=== PATIENT | female | born 1955 | race Caucasian/White ===

== ENCOUNTER 2018-03-20 08:30 | Outpatient (RCR) | payer OTHER, SELFPAY ==
--- NOTE | 2018-02-01 13:16 | HP.PTEVAL_ITS ---
Patient's Visit Information ANGELINA MANCERA is a 62 year old F referred to Physical Therapy by Rica Gee MD with a diagnosis of CERVICALGIA. Date of Evaluation: 02/01/18 Physical Therapist: Abbey Obregon - Visit Plan Frequency: 2x /Week Duration: 4-6 Weeks Plan: POSTURE CORRECTION/STRENGTHENING, INSTRUCTION IN APPROPRIATE BODY MECHANICS AND ACTIVITY MODIFICATIONS. IVAN UE ROM, STRETCHING AND STRENGTHENING. HEP INSTRUCTION. - Subjective Subjective: Diagnosis: CERVICALGIA. 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 45 MIN TRAVEL 5 DAYS A WEEK. ABOUT 50% SITTING AND 50% STANDING. Disability: NO. Present symptoms: IVAN NECK PAIN RIGHT > LEFT. Present since: ABOUT 5 MONTHS. SX'S WORSENED DECEMBER 23 AFTER A 2.5 HOUR FLIGHT. Pain Scale: WORST 6/10, LEAST 0/10. Currently: 4/10. Commenced as a result of: FROM A LOT OF STRESS AND LOOKING DOWN. Symptoms at onset: LEFT NECK > RIGHT. Worse: SLEEPING, TURNING HEAD RIGHT OR LEFT DRIVING, WEIGHT LIFTING/SHOULDER WORK. Better: HEAT PACK. Disturbed sleep: YES. Previous history/Previous treatment: UNREMARKABLE. Dizziness: NO. Tinnitis: NO. Nausea: NO. Difficulty Swollowing: NO. Gait: NORMAL. Accidents: NO. Unexplained weight loss: NO. Imaging: NECK X-RAY ABOUT 3 YEARS AGO - NORMAL. TAKEN DUE TO DIZZINESS AND NAUSEA. PMH: UNREMARKABLE. Recent major surgery: UNREMARKABLE - Objective Sitting Posture: POOR. FORWARD HEAD AND ROUNDED SHOULDERS. NO TORTICOLLIS. Active Correction of posture: BETTER. Other Observations: INDEP GAIT AND TRANSFERS. Motor deficit: IVAN UE STRENGTH 5/5 WITH MMT. Sensory deficit: NO. ROM deficit: IVAN UE ROM WFL. Dural Signs: NEGATIVE IVAN UE'S. Cervical Mvmt Loss: Flex: NIL. Pro: NIL. Ext: MIN. Ret: MOD. RSB: MOD. LSB: MOD. R Rot : MOD. L Rot: MOD. Postural strength: FAIR. Palpation: NO ACUTE SPINE OR CERVICAL MUSCULATURE TENDERNESS. A FEW UPPER TRAP PALPABLE TRIGGER POINTS. - Goals Goal 1:: DECREASE C/O NECK PAIN Goal Time Frame: 4-6 Weeks Goal 2:: IMPROVE PERSONAL CARE, LIFTING, READING, SLEEP, WORK, DRIVING AND RECREATIONAL FUNCTION Goal Time Frame: 4-6 Weeks Goal 3:: INSTRUCT IN PROPHYLAXIS Goal Time Frame: 4-6 Weeks - Rehabilitation Potential Rehabilitation Potential: Good - Anticipated Interventions Thank you for the opportunity to evaluate your patient. For Medicare and Medicare HMO plans, please review the plan of care and approve it. It will need to be FAXED BACK to us at [phone] for Medicare purposes. Please let me know if there are questions or concerns regarding this plan of care. Physician Signature: Date:
--- NOTE | 2018-03-12 12:31 | HP.PTREVAL_ITS ---
Rica Gee MD, It has been my pleasure to treat ANGELINA MANCERA over the last 6 visits for CERVICALGIA. Please see the progress note below for an update on the physical therapy plan of care! Subjective: PATIENT REPORTS SHE TRIES TO DO HER EX'S EVERYDAY AND SHE HAS GOT TO THE POINT THAT SHE CAN GO ABOUT HER NORMAL DAILY ACTIVITIES WITH OCCASSIONAL MILD PAIN. IT IS STILL THERE THOUGH AND SHE WANTS A CURE. I AM IMPATIENT . THE NECK EX'S HELP HER WORK THE STIFFNESS OUT. WHEN SHE TURNS HER HEAD SHE GETS PAIN IN HER NECK ON THE SAME SIDE SHE IS TURNING TO. PATIENT REPORTS SHE FEELS CONFIDENT IN HOW TO DO HER HEP. PATIENT REPORTS SHE PURCHASED A TENS DEVICE AND IT IS HELPING. PATIENT REPORTS SHE WOULD LIKE TO CONTINUE PT FOR AT LEAST A FEW MORE VISITS TO SEE IF MORE US WILL HELP AND SEE IF SHE CAN ADD TO HER HEP. SHE WOULD ALSO LIKE FURTHER INSTRUCTION IN APPROPRIATE INDEP EX RESUMPTION. Objective/Function: IMPROVING. GOOD PROGRESS TOWARD SET PT GOALS. UPON EXAM, PATIENT HAS FULL IVAN UE ROM AND STRENGTH WFL AND TESTING DOES NOT PROVOKE PAIN. CERVICAL MVMT LOSS: R SB - MIN. L SB - MOD. IVAN ROT - MOD. EXT - NIL. RET - MIN TO MOD. FLEX/PRO - NIL. IVAN ROTATION TESTING PROVOKES PAIN AT THE END OF THE AVAILABLE RANGE LEFT GREATER THAN RIGHT. NECK OSWESTRY HAS IMPROVED FROM 19 TO 10. Plan Plan: CONT US AND THERE EX INDICATED PER ORIG POC. PATIENT IS AGREEABLE. Goals Goal 1:: DECREASE C/O NECK PAIN Goal Time Frame: 4-6 Weeks Goal Progress: Progressing Goal 2:: IMPROVE PERSONAL CARE, LIFTING, READING, SLEEP, WORK, DRIVING AND RECREATIONAL FUNCTION Goal Time Frame: 4-6 Weeks Goal Progress: Progressing Goal 3:: INSTRUCT IN PROPHYLAXIS Goal Time Frame: 4-6 Weeks Goal Progress: Progressing Anticipated Interventions Please do not hesitate to contact me at [phone] by phone or Fax: if you have questions or concerns regarding this new plan of care! Sincerely, Abbey Obregon
--- NOTE | 2018-03-20 11:41 | HP.PTDCSUM_ITS ---
HP - PT D/C Summary It has been my pleasure to treat ANGELINA MANCERA under orders from Rica Gee MD , for the diagnosis of CERVICALGIA for a total of 8 visit(s). Discharge Date: Please see the following information for a summary of their discharge status. - Subjective Subjective: PATIENT REPORTS SHE HAD PAIN THIS WEEKEND. WEEDING FOR ABOUT AN HOUR. I ALWAYS FEEL BETTER AFTER WORK OUTS. USUALLY DO NOT EX ON THE WEEKENDS. PATIENT REPORTS SHE FELT GREAT AFTER LAST PT SESSION. - Pain NECK Pain Intensity (Out of 10): 3 - Overall Improvement % Improvement: 80 - Objective Objective/Function: ALL GOALS MET. PATIENT HAS RESPONDED VERY WELL TO PT AND MIGHT BENEFIT FROM A FEW MORE SESSIONS HOWEVER SHE IS GOING OUT OF TOWN FOR ABOUT 3 WEEKS. SHE DEMONSTRATES AND COMMUNICATES A GOOD UNDERSTANDING OF ALL INSTRUCTIONS GIVEN TO THIS POINT. UPON EXAM, SHE STILL HAS CERVICAL MVMT LOSS SIMILAR TO INITIAL EVAL BUT SHE IS REPORTING LESS PAIN AND HEADACHES. NO UE SX' S. CERVICAL OSWESTRY HAS IMPROVED FROM 10 to 5 - Goals Goal 1:: DECREASE C/O NECK PAIN Goal Progress: Goal Met Goal 2:: IMPROVE PERSONAL CARE, LIFTING, READING, SLEEP, WORK, DRIVING AND RECREATIONAL FUNCTION Goal Progress: Goal Met Goal 3:: INSTRUCT IN PROPHYLAXIS Goal Progress: Goal Met - Plan Plan: D/C DUE TO PATIENT LEAVING TOWN. RECOMMENDED FOLLOW UP WITH PCP AFTER TRIP NEEDED. PATIENT AGREEABLE. - D/C Information If there are questions or concerns regarding this patient's physical therapy, please feel free to call me at [phone]. Thank you for the referral of this patient. Sincerely, Abbey Obregon
== END 2018-03-20 19:00 | disposition home or self-care (01) ==
LOC: PT 08:30
PROVIDERS: Family Provider Family Medicine; PCP Family Medicine; Visit Provider Family Medicine
DX: M54.2 Cervicalgia (principal)
CPT/HCPCS: 97014; 97035; 97110; 97140; 97161; 97530; G0283

== ENCOUNTER 2018-07-09 08:30 | Outpatient (RCR) | payer OTHER, SELFPAY ==
--- NOTE | 2018-05-23 10:14 | HP.PTEVAL_ITS ---
Patient's Visit Information ANGELINA MANCERA is a 62 year old F referred to Physical Therapy by Rickey Munson with a diagnosis of CERVICAL DDD C56. Date of Evaluation: 05/23/18 Physical Therapist: Abbey Obregon - Visit Plan Frequency: 2-3x /Week Duration: 4-6 Weeks Plan: CERVICAL US, DRY NEEDLING, MOBILIZATION AND TRACTION. FUTHER POSTURE CORRECTION/STRENGTHENING, INSTRUCTION IN APPROPRIATE BODY MECHANICS AND ACTIVITY MODIFICATIONS. IVAN UE ROM, STRETCHING AND STRENGTHENING. HEP INSTRUCTION. 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 Present symptoms: IVAN NECK PAIN. Present since: DECEMBER 2017. Pain Scale: Worst - 3/ 10 Least - 0/10. Currently: 2. Commenced as a result of: BAD POSTURE FROM DRIVING FROM 45 MIN COMMUTE AND SLEEPING IN AN AWKWARD POSITION ON STOMACH TWISTED. BUSY END OF SCHOOL YEAR. Symptoms at onset: SAME. Worse: BACK TO WORK, STRESS, COMMUTE 45 MIN TO WORK, BAD SLEEPING POSTIONS. Better: PROPER POSTURE, RETRACTION EX'S. Disturbed sleep: YES. Previous history/Previous treatment: PT HERE AT [facility]. Dizziness: NO. Tinnitis: NO. Nausea: NO. Difficulty Swollowing: NO. Gait: NORMAL. Accidents: NO. Unexplained weight loss: NO. Imaging: X-RAY AT [facility] OF NECK - ARTHRITIS AT C56. PMH/Recent major surgery: UNREMARKABLE. - Objective Sitting Posture/Standing Posture: FAIR. MILD FORWARD HEAD. NO TORTICOLLIS. Active Correction of posture: BETTER. Other Observations: INDEP GAIT AND TRANSFERS. Motor deficit: IVAN UE STRENGTH 5/5. Sensory deficit: IVAN UE LIGHT TOUCH SENSATION IS INTACT AND SYMMETRICAL. ROM deficit: IVAN UE ROM WFL. Reflexes: 2/3 IVAN UE'S. Dural Signs: NEGATIVE IVAN UE'S. Cervical Mvmt Loss : Flex: NIL. Pro: NIL. Ext: MIN. Ret: MOD. RSB: MOD. LSB: MOD. R Rot: MOD. L Rot: MOD. Postural strength: FAIR. Palpation: INCREASED MUSCLE TONE THROUGHOUT IVAN CERVICAL REGION. - Goals Goal 1:: DECREASE C/O NECK PAIN Goal Time Frame: 4-6 Weeks Goal 2:: INCREASE PAINFREE CERVICAL ROM TO IMPROVE READING, SLEEP, WORK, DRIVING AND RECREATIONAL FUNCTION Goal Time Frame: 4-6 Weeks Goal 3:: INSTRUCT IN PROPHYLAXIS - Rehabilitation Potential Rehabilitation Potential: Fair - Anticipated Interventions Patient/Client Instruction: Educate patient on: Condition, Plan of Care, Risk Factors, Benefits of Fitness Program For the Purpose of:: To improve self management Therapeutic Exercise to Include: Strength training, Body mechanics, Postural training, Flexibilty training, Passive ROM, Active ROM, Avis Exercises, Scapular Strength/Stabilization For the Purpose of:: To decrease pain, To increase ROM, To improve muscle performance and motor function, To increase tolerance to activity/condition/ position, To improve ability of physical actions for home/community/work/leisure Manual Therapy Techniques to Include: Mobilization, Functional dry needling, Soft tissue mobilization For the Purpose of:: To decrease pain, To increase ROM, To improve nutrient delivery to tissue Cryotherapy (ice pack, ice massage): Yes Thermo therapy (hot pack): Yes Ultrasound (thermal/non thermal): Yes Intermittent cervical traction: Yes For the Purpose of:: To decrease pain, To increase ROM, To improve nutrient delivery to tissue Thank you for the opportunity to evaluate your patient. For Medicare and Medicare HMO plans, please review the plan of care and approve it. It will need to be FAXED BACK to us at [phone] for Medicare purposes. Please let me know if there are questions or concerns regarding this plan of care. Physician Signature: Date:
--- NOTE | 2018-07-02 10:29 | HP.PTREVAL ---
Rickey Munson, It has been my pleasure to treat ANGELINA MANCERA over the last 10 visits for CERVICAL DDD C56. Please see the progress note below for an update on the physical therapy plan of care! Subjective: PATIENT REPORTS HER HEADACHE WAS GONE AFTER TRACTION LAST VISIT. SHE STATES SHE TOLERATED THE DRY NEEDLING WELL TOO. SHE REPORTS SHE HAS ORDERED A HOME TRACTION DEVICE WITH THE HELP OF MAMTA COFFEY DPMarjorie. SHE STATES SHE IS CONTINUING TO IMPROVE WITH TRACTION AND DRY NEEDLING AND SHE PLANS TO FINISH HER SCHEDULED PT X 2 MORE VISITS THEN TRY TO MANAGE ON HER OWN. Objective/Function: PATIENT IS MAKING PROGRESS TOWARD ALL PT GOALS AND IS A GOOD CANDIDATE TO CONTINUE X 2 MORE VISITS WITH D/C ANTICIPATED AFTER THAT. HER NECK ROM IS IMPROVING. Cervical Mvmt Loss: Flex: NIL. Pro: NIL. Ext: MIN. Ret: MOD. RSB: MIN. LSB: MIN. R Rot: MIN. L Rot: MIN. TOLERATED TX WELL TODAY. SESSION FOR DRY NEEDLING TO FOLLOW. Plan Plan: CERVICAL US, DRY NEEDLING, MOBILIZATION AND TRACTION. FUTHER POSTURE CORRECTION/STRENGTHENING, INSTRUCTION IN APPROPRIATE BODY MECHANICS AND ACTIVITY MODIFICATIONS. IVAN UE ROM, STRETCHING AND STRENGTHENING. HEP INSTRUCTION. Goals Goal 1:: DECREASE C/O NECK PAIN Goal Time Frame: 4-6 Weeks Goal Progress: Progressing Goal 2:: INCREASE PAINFREE CERVICAL ROM TO IMPROVE READING, SLEEP, WORK, DRIVING AND RECREATIONAL FUNCTION Goal Time Frame: 4-6 Weeks Goal Progress: Progressing Goal 3:: INSTRUCT IN PROPHYLAXIS Goal Progress: Progressing Anticipated Interventions Patient/Client Instruction: Educate patient on: Condition, Plan of Care, Risk Factors, Benefits of Fitness Program For the Purpose of:: To improve self management Therapeutic Exercise to Include: Strength training, Body mechanics, Postural training, Flexibilty training, Passive ROM, Active ROM, Avis Exercises, Scapular Strength/Stabilization For the Purpose of:: To decrease pain, To increase ROM, To improve muscle performance and motor function, To increase tolerance to activity/condition/position, To improve ability of physical actions for home/community/work/leisure Manual Therapy Techniques to Include: Mobilization, Functional dry needling, Soft tissue mobilization For the Purpose of:: To decrease pain, To increase ROM, To improve nutrient delivery to tissue Cryotherapy (ice pack, ice massage): Yes Thermo therapy (hot pack): Yes Ultrasound (thermal/non thermal): Yes Intermittent cervical traction: Yes For the Purpose of:: To decrease pain, To increase ROM, To improve nutrient delivery to tissue Please do not hesitate to contact me at [phone] by phone or if you have questions or concerns regarding this new plan of care! Sincerely, Abbey Obregon
--- NOTE | 2018-07-09 12:24 | HP.PTDCSUM ---
HP - PT D/C Summary It has been my pleasure to treat ANGELINA MANCERA under orders from Rickey Munson, for the diagnosis of CERVICAL DDD C56 for a total of 12 visit(s). Discharge Date: 07/09/18 Please see the following information for a summary of their discharge status. - Subjective Subjective: Pt. reports being significantly better than whe she started PT. Pt. reports no pain currently. This PT seeing patient for second half of PT session. - Pain BEHIND LEFT EAR Pain Intensity (Out of 10): 0 HEADACHE Pain Intensity (Out of 10): 0 IVAN UPPER TRAPS Pain Intensity (Out of 10): 0 NECK Pain Intensity (Out of 10): 0 - Overall Improvement % Improvement: 98 - Objective Objective/Function: Pt. tolerated all PT without adverse reaction. Pt. has mutliple LTR on L UT and L levator scapulea. Pt. had min/nil loss with cervical rotation to L side, but no pain. Rest of motion was full. Pt. pleased with PT. - Goals Goal 1:: DECREASE C/O NECK PAIN Goal Progress: Progressing Goal 2:: INCREASE PAINFREE CERVICAL ROM TO IMPROVE READING, SLEEP, WORK, DRIVING AND RECREATIONAL FUNCTION Goal Progress: Progressing Goal 3:: INSTRUCT IN PROPHYLAXIS Goal Progress: Progressing - Plan Plan: D/C. PATIENT AGREEABLE - D/C Information If there are questions or concerns regarding this patient's physical therapy, please feel free to call me at [phone]. Thank you for the referral of this patient. Sincerely, Abbey Obregon
== END 2018-07-09 15:14 | disposition home or self-care (01) ==
LOC: PT 08:30
PROVIDERS: Family Provider Family Medicine; PCP Family Medicine; Visit Provider Orthopaedic Surgery
DX: M50.322 Other cervical disc degeneration at C5-C6 level (principal)
CPT/HCPCS: 97012; 97035; 97140; 97161; 97164; 97530

== ENCOUNTER → 2018-07-30 11:31 | Outpatient (CLI) | payer OTHER, SELFPAY | PROVIDERS: Family Provider Family Medicine; PCP Family Medicine; Visit Provider Family Medicine | DX: R19.7 Diarrhea, unspecified (principal) | CPT/HCPCS: 87177; 87209; 87493; 87506 ==

== ENCOUNTER → 2018-08-22 07:17 | Outpatient (CLI) | payer OTHER, SELFPAY ==
--- NOTE | 2018-08-22 07:23 | CT_ITS ---
STUDY: CT ABDOMEN AND PELVIS WITH CONTRAST REASON FOR EXAM: Female, 63 years old. Lower pelvic pain x1 month. RADIATION DOSAGE (If Supplied By Facility): CTDIvol = ( 10.91 ) mGy, DLP = ( 619.06 ) mGycm TECHNIQUE: Transaxial 3.75 mm enhanced and 7 minute delayed liver images were obtained from the dome of the diaphragm to the symphysis pubis with oral contrast. 100 ml of Isovue 300 contrast was administered. Sagittal and coronal images were reconstructed. Individualized dose optimization techniques were used for this CT. COMPARISON: None. FINDINGS: The visualized lung bases are unremarkable. The visualized portions of the heart are within normal limits. Right hepatic lobe contains a lobular low-attenuation mass with nodular peripheral irregular enhancement on arterial phase, measuring approximately 4.1 x 3.4 x 3.7 cm ( AP x width x height ). There is near complete filling on delayed imaging and slight hyperattenuation in comparison to the remainder of the liver parenchyma. This is a characteristic for hemangioma, a benign entity.Normal gallbladder and extrahepatic biliary system. Normal spleen. Normal pancreas. Normal bilateral adrenal glands. Normal right kidney. Normal left kidney. The left ovarian vein is incompetent with left pelvic varices with minimal cross filling. The left common iliac vein is dilated compared to the right side. Normal visualized stomach. Normal small intestine. There are sigmoid colonic diverticula consistent with diverticulosis. The appendix is visualized and appears normal. Image [id number] series 2. Normal abdominal aorta. Normal inferior vena cava. Normal retroperitoneum. Decompressed urinary bladder. The uterus is age appropriate. Small low-attenuation left pelvis 1.9 x 1.3 x 1.2 cm and right pelvis 0.9 x 1.4 x 1.5 cm likely involuted ovaries. Normal abdominal wall. Normal osseous structures. CT/Abdomen/Pelvis WITH Contrast IMPRESSION: Sigmoid diverticulosis. 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 Right liver hemangioma, a stable benign finding, no follow-up required. There is no appendicitis, diverticulitis, ascites, abscess, collection, perforation or obstruction. Electronically Signed: Yaima Fitzpatrick MD at 5:35 EST , Service support ,
[2018-08-22 07:36] LABS: CREATININE FINGERSTICK 0.8 mg/dL (0.55-1.02); EGFR FINGERSTICK > 60.0000 mL/min (>60)
--- OUTSIDE RECORDS SUMMARY | 2018-10-17 11:48 | XMS RPT_ITS ---
:1955 Author Organization OHIP Care Team Providers Name Role Phone Rica Gee Attending Unavailable Rica Gee Referring Unavailable Rica Gee Primary Care Unavailable Twan Waters Attending Unavailable Twan Waters Referring Unavailable Rica Gee Primary Care Unavailable DOCTOR, OUT OF TOWN Attending Unavailable Rica Gee Primary Care Unavailable Jolliff, Rica Attending Unavailable Jolliff, Rica Referring Unavailable Jolliff, Rica Primary Care Unavailable Rickey Munson Attending Unavailable Jolliff, Rica Primary Care Unavailable Jolliff, Rica Attending Unavailable Jolliff, Rica Primary Care Unavailable Jolliff, Rica Attending Unavailable Jolliff, Rica Referring Unavailable Jolliff, Rica Primary Care Unavailable PROBLEMS PROBLEMS DATE TYPE CONDITION / CODE ATTENDING STATUS SOURCE 09/05/2018 Unknown Z12.4 - Encounter Rica Gee [facility] for [facility] malignant neoplasm [facility] of cervix / Repository Z12.4(ICD-10) 07/09/2018 Unknown M50.322 - Other Rickey Munson Active [facility] 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 For the evaluation of Relative Risk for Cardiovascular Disease, a High Sensitivity CRP (HSCRP) should be ordered. Performed By: #### L501.6710 #### [facility] [place], [address] PAP I-G W/RFX HRHPV Collected: 09/05/2018 Status: F Source: [facility] 10:00 AM [facility] REPOSITORY Order Comment: CYTOLOGY INFORMATION: - CLINICAL INFORMATION: - DATE LMP/MENOPAUSE: MENOPAUSE - COLLECTION VIAL: Thin Prep Vial - NET SOFTWARE ENGINEER SOURCE: CERVICAL/ENDOCERVICAL - COLLECTION TECHNIQUE: BRUSH/SPATULA Specimen Comment: [id number] Specimen Comment: Source.............Cervix;Endocervix Specimen Comment: Other..............Post Menopausal Specimen Comment: No. of containers..01 ThinPrep Vial TYPE CODE TESTS RESULT OUT OF RANGE REFERENCE UNITS LAB L7400.0800 . Normal DIAGN Comment Result Comment: NEGATIVE FOR INTRAEPITHELIAL LESION AND MALIGNANCY. CELLULAR CHANGES ASSOCIATED WITH ATROPHY ARE PRESENT. LAB L7400.0900 . Normal ADEQ Comment Result Comment: Satisfactory for evaluation. Endocervical component may not be distinguished in cases of atrophy. LAB L7400.1400 . Normal PERFORM Comment Result Comment: Mayra Overton, Textile Finisher (ASCP) LAB L7400.2575 . Normal TEST METHOD Comment Result Comment: This liquid based ThinPrep(R) pap test was screened with the use of an image guided system. LAB L7400.2600 . Normal . COMM LAB L7400.2700 . Normal PAPSMR Comment Result Comment: The Pap smear is a screening test designed to aid in the detection of premalignant and malignant conditions of the uterine cervix. It is not a diagnostic procedure and should not be used as the sole means of detecting cervical cancer. Both false-positive and false-negative reports do occur. LAB L7400.2800 . Normal HPV RFLX Comment Result Comment: The HPV DNA reflex criteria were not met with this specimen result therefore, no HPV testing was performed. Performed at: [facility] [address] [id number] Website Admin: Maryellen Rosas MD, Phone: [phone] Performed By: #### L7400.0350 #### [facility] (refer to report for specific site) refer to report for address and phone number CREATININE FINGERSTICK Collected: 08/22/2018 Status: F Source: [facility] 7:29 AM [facility] REPOSITORY TYPE CODE TESTS RESULT OUT OF RANGE REFERENCE UNITS LAB L9100.0210 0.55-1.02 mg/dL Normal CREATININE WB 0.8 LAB L9100.0220 >60 mL/min EGFR WB Normal > 60.0000 Performed By: #### L9100.0200 #### [facility] Laboratory Point of Care [address] [place], [place] [address] ABDOMEN/PELVIS WITH Observed: 08/22/2018 Status: F Source: [facility] CONTRAST 7:23 AM [facility] REPOSITORY [facility] Imaging Services [address] [place] [address] Abdomen/Pelvis WITH Contrast MR#: [id number] Acct: [id number] Name: ANGELINA MANCERA Rep #: [id number] : 1955 F 63 From: Yaima Fitzpatrick MD PCP: Rica Gee MD Status: REG CLI Study: Abdomen/Pelvis WITH Contrast Date of Exam: 08/22/18 Exam# [id number] Ordering Dr: Rica Gee MD STUDY: CT ABDOMEN AND PELVIS WITH CONTRAST REASON FOR EXAM: Female, 63 years old. Lower pelvic pain x1 month. RADIATION DOSAGE (If Supplied By Facility): CTDIvol = ( 10.91 ) mGy, DLP = ( 619.06 ) mGycm TECHNIQUE: Transaxial 3.75 mm enhanced and 7 minute delayed liver images were obtained from the dome of the diaphragm to the symphysis pubis with oral contrast. 100 ml of Isovue 300 contrast was administered. Sagittal and coronal images were reconstructed. Individualized dose optimization techniques were used for this CT. COMPARISON: None. FINDINGS: The visualized lung bases are unremarkable. The visualized portions of the heart are within normal limits. Right hepatic lobe contains a lobular low-attenuation mass with nodular peripheral irregular enhancement on arterial phase, measuring approximately 4.1 x 3.4 x 3.7 cm ( AP x width x height ). There is near complete filling on delayed imaging and slight hyperattenuation in comparison to the remainder of the liver parenchyma. This is a characteristic for hemangioma, a benign entity.Normal gallbladder and extrahepatic biliary system. Normal spleen. Normal pancreas. Normal bilateral adrenal glands. Normal right kidney. Normal left kidney. The left ovarian vein is incompetent with left pelvic varices with minimal cross filling. The left common iliac vein is dilated compared to the right side. Normal visualized stomach. Normal small intestine. There are sigmoid colonic diverticula consistent with diverticulosis. The appendix is visualized and appears normal. Image [id number] series 2. Normal abdominal aorta. Normal inferior vena cava. Normal retroperitoneum. Decompressed urinary bladder. The uterus is age appropriate. Small low-attenuation left pelvis 1.9 x 1.3 x 1.2 cm and right pelvis 0.9 x 1.4 x 1.5 cm likely involuted ovaries. Normal abdominal wall. Normal osseous structures. CT/Abdomen/Pelvis WITH Contrast IMPRESSION: Sigmoid diverticulosis. 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 Right liver hemangioma, a stable benign finding, no follow- up required. There is no appendicitis, diverticulitis, ascites, abscess, collection, perforation or obstruction. Electronically Signed: Yaima Fitzpatrick MD at 5:35 EST , Service support , CC: Rica Gee MD Digital Media Manager: Signed Observed: 07/30/2018 Status: F Source: [facility] CDIFF (MOLECULAR) 10:15 AM [facility] REPOSITORY Cdiff-Molecular Normal Reference Range = Negative C. Diff DNA Negative- No toxigenic C. Diff DNA Detected NAAT METHOD Testing was performed using nucleic acid amplification Performed By: #### M100.6796, M100.637 #### [facility] [address] [facility] [place], [address] Observed: 07/30/2018 Status: F Source: [facility] ENTERIC PATHOGEN 10:15 AM [facility] PANEL STOOL REPOSITORY EP PANEL STOOL Normal Reference Range = Not Detected Not detected for Campylobacter group, Salmonella species, Shigella species, Vibrio Group, Yersinia enterocolitica, EHEC (Shiga Toxin 1, Shiga Toxin 2), Norovirus Gl/Gll, and Rotavirus A. Other common stool pathogens are not detected on this panel include: Aeromonas/Plesiomonas or parasites. Order testing for these organisms separately if suspected. This is an amplified DNA test which makes it both specific and sensitive. CAMPYLOBACTER Not Detected Salmonella Not Detected Shigella sp. Not Detected Shiga Toxin Not Detected Yersinia Not Detected VIBRIO Not Detected Norovirus Not Detected Rotavirus Not Detected Performed By: #### M100.6796, M100.637 #### [facility] [address] [facility] [place], [address] Observed: 07/30/2018 Status: F Source: [facility] OVA AND PARASITES 10:15 AM [facility] REPOSITORY O + P OVA AND PARASITES EXAM, ROUTINE These results were obtained using wet preparation(s) and trichrome stained smear. This test does not include testing for Crytosporidium parvum, Cyclospora, or Microsporidia. TESTING PERFORMED AT [facility]. ORIGINAL REPORT ON FILE IN LAB CONTAINS ADDITIONAL TEST SITE INFORMATION. Ova/Parasite Exam NO OVA, CYSTS, OR PARASITES FOUND. Performed By: #### M600.5000 #### [facility] [address] [place], [address] PT D/C SUMMARY (1) Observed: 07/09/2018 Status: F Source: [facility] 2:59 PM [facility] REPOSITORY [facility] Physical [facility] [place] [address] Fax REHABILITATION SERVICES DISCHARGE SUMMARY MR#: [id number] Acct: [id number] Name: ANGELINA MANCERA Rep #: [id number] : 1955 62 From: Abbey Obregon PT, Cert. MDT Referring Dr.: Rickey Munson DO Status: REG RCR Insurance: [employer] INSURANCE HP - PT D/C Summary It has been my pleasure to treat ANGELINA MANCERA under orders from Rickey Munson, for the diagnosis of CERVICAL DDD C56 for a total of 12 visit(s). Discharge Date: 07/09/18 Please see the following information for a summary of their discharge status. - Subjective Subjective: Pt. reports being significantly better than whe she started PT. Pt. reports no pain currently. This PT seeing patient for second half of PT session. - Pain BEHIND LEFT EAR Pain Intensity (Out of 10): 0 HEADACHE Pain Intensity (Out of 10): 0 IVAN UPPER TRAPS Pain Intensity (Out of 10): 0 NECK Pain Intensity (Out of 10): 0 - Overall Improvement % Improvement: 98 - Objective Objective/Function: Pt. tolerated all PT without adverse reaction. Pt. has mutliple LTR on L UT and L levator scapulea. Pt. had min/nil loss with cervical rotation to L side, but no pain. Rest of motion was full. Pt. pleased with PT. - Goals Goal 1:: DECREASE C/O NECK PAIN Goal Progress: Progressing Goal 2:: INCREASE PAINFREE CERVICAL ROM TO IMPROVE READING, SLEEP, WORK, DRIVING AND RECREATIONAL FUNCTION Goal Progress: Progressing Goal 3:: INSTRUCT IN PROPHYLAXIS Goal Progress: Progressing - Plan Plan: D/C. PATIENT AGREEABLE - D/C Information If there are questions or concerns regarding this patient's physical therapy, please feel free to call me at [phone]. Thank you for the referral of this patient. Sincerely, Abbey Obregon <Electronically signed by Cert. CHERYL Snell PTT> 07/09/18 145 CC: Rica Gee MD; Rickey Munson DO PLACIDO Signed RE-EVALUATION - PT (1) Observed: 07/03/2018 Status: F Source: [facility] 8:43 AM [facility] REPOSITORY [facility] Physical [facility] [address] [place] [address]. [address] [place], [place] [address] Fax REEVALUATION / MEDICARE RECERTIFICATION PHYSICAL THERAPY MR#: [id number] Acct: [id number] Name: ANGELINA MANCERA Rep #: [id number] : 1955 62 From: Abbey Obregon PT CertJosie LUNAT Referring Dr.: Rickey Munson DO Status: REG RCR Insurance: [employer] INSURANCE Rickey Munson, It has been my pleasure to treat ANGELINA MANCERA over the last 10 visits for CERVICAL DDD C56. Please see the progress note below for an update on the physical therapy plan of care! Subjective: PATIENT REPORTS HER HEADACHE WAS GONE AFTER TRACTION LAST VISIT. SHE STATES SHE TOLERATED THE DRY NEEDLING WELL TOO. SHE REPORTS SHE HAS ORDERED A HOME TRACTION DEVICE WITH THE HELP OF MAMTA COFFEY DPT. SHE STATES SHE IS CONTINUING TO IMPROVE WITH TRACTION AND DRY NEEDLING AND SHE PLANS TO FINISH HER SCHEDULED PT X 2 MORE VISITS THEN TRY TO MANAGE ON HER OWN. Objective/Function: PATIENT IS MAKING PROGRESS TOWARD ALL PT GOALS AND IS A GOOD CANDIDATE TO CONTINUE X 2 MORE VISITS WITH D/C ANTICIPATED AFTER THAT. HER NECK ROM IS IMPROVING. Cervical Mvmt Loss: Flex: NIL. Pro: NIL. Ext: MIN. Ret: MOD. RSB: MIN. LSB: MIN. R Rot: MIN. L Rot: MIN. TOLERATED TX WELL TODAY. SESSION FOR DRY NEEDLING TO FOLLOW. Plan Plan: CERVICAL US, DRY NEEDLING, MOBILIZATION AND TRACTION. FUTHER POSTURE CORRECTION/STRENGTHENING, INSTRUCTION IN APPROPRIATE BODY MECHANICS AND ACTIVITY MODIFICATIONS. IVAN UE ROM, STRETCHING AND STRENGTHENING. HEP INSTRUCTION. Goals Goal 1:: DECREASE C/O NECK PAIN Goal Time Frame: 4-6 Weeks Goal Progress: Progressing Goal 2:: INCREASE PAINFREE CERVICAL ROM TO IMPROVE READING, SLEEP, WORK, DRIVING AND RECREATIONAL FUNCTION Goal Time Frame: 4-6 Weeks Goal Progress: Progressing Goal 3:: INSTRUCT IN PROPHYLAXIS Goal Progress: Progressing Anticipated Interventions Patient/Client Instruction: Educate patient on: Condition, Plan of Care, Risk Factors, Benefits of Fitness Program For the Purpose of:: To improve self management Therapeutic Exercise to Include: Strength training, Body mechanics, Postural training, Flexibilty training, Passive ROM, Active ROM, Avis Exercises, Scapular Strength/Stabilization For the Purpose of:: To decrease pain, To increase ROM, To improve muscle performance and motor function, To increase tolerance to activity/condition/position, To improve ability of physical actions for home/community/work/leisure Manual Therapy Techniques to Include: Mobilization, Functional dry needling, Soft tissue mobilization For the Purpose of:: To decrease pain, To increase ROM, To improve nutrient delivery to tissue Cryotherapy (ice pack, ice massage): Yes Thermo therapy (hot pack): Yes Ultrasound (thermal/non thermal): Yes Intermittent cervical traction: Yes For the Purpose of:: To decrease pain, To increase ROM, To improve nutrient delivery to tissue Please do not hesitate to contact me at [phone] by phone or if you have questions or concerns regarding this new plan of care! Sincerely, Abbey Obregon <Electronically signed by Abbey Obregon PT, Cert. LUNAT> 07/03/18 0843 CC: Rica Gee MD; Rickey Munson DO PLACIDO Signed For Medicare only, by signing this I certify the plan of care. Physicians Signature Date INITAL EVALUATION (1) Observed: 05/23/2018 Status: F Source: [facility] - PT 12:38 PM [facility] REPOSITORY [facility] Physical [facility] [address] [place] [address] Fax REHABILITATION SERVICES INITIAL EVALUATION MR#: [id number] Acct: [id number] Name: ANGELINA MANCERA Rep #: [id number] : 1955 62 From: Abbey Obregon PT, Cert. LUNAT Referring Dr.: Rickey Munson DO Status: REG RCR [facility] Patient's Visit Information ANGELINA MANCERA is a 62 year old F referred to Physical Therapy by Rickey Munson with a diagnosis of CERVICAL DDD C56. Date of Evaluation: 05/23/18 Physical Therapist: Abbey Obregon - Visit Plan Frequency: 2-3x /Week Duration: 4-6 Weeks Plan: CERVICAL US, DRY NEEDLING, MOBILIZATION AND TRACTION. FUTHER POSTURE CORRECTION/STRENGTHENING, INSTRUCTION IN APPROPRIATE BODY MECHANICS AND ACTIVITY MODIFICATIONS. IVAN UE ROM, STRETCHING AND STRENGTHENING. HEP INSTRUCTION. - Subjective Subjective: Work/Leisure: [employer]. Disability: NO. Present symptoms: IVAN NECK PAIN. Present since: DECEMBER 2017. Pain Scale: Worst - 3/10 Least - 0/10. Currently: 2. Commenced as a result of: BAD POSTURE FROM DRIVING FROM 45 MIN COMMUTE AND SLEEPING IN AN AWKWARD POSITION ON STOMACH TWISTED. BUSY END OF SCHOOL YEAR. Symptoms at onset: SAME. Worse: BACK TO WORK, STRESS, COMMUTE 45 MIN TO WORK, BAD SLEEPING POSTIONS. Better: PROPER POSTURE, RETRACTION EX'S. Disturbed sleep: YES. Previous history/Previous treatment: PT HERE AT [facility]. Dizziness: NO. Tinnitis: NO. Nausea: NO. Difficulty Swollowing: NO. Gait: NORMAL. Accidents: NO. Unexplained weight loss: NO. Imaging: X-RAY AT [facility] OF NECK - ARTHRITIS AT C56. PMH/Recent major surgery: UNREMARKABLE. - Objective Sitting Posture/Standing Posture: FAIR. MILD FORWARD HEAD. NO TORTICOLLIS. Active Correction of posture: BETTER. Other Observations: INDEP GAIT AND TRANSFERS. Motor deficit: IVAN UE STRENGTH 5/5. Sensory deficit: IVAN UE LIGHT TOUCH SENSATION IS INTACT AND SYMMETRICAL. ROM deficit: IVAN UE ROM WFL. Reflexes: 2/3 IVAN UE'S. Dural Signs: NEGATIVE IVAN UE'S. Cervical Mvmt Loss: Flex: NIL. Pro: NIL. Ext: MIN. Ret: MOD. RSB: MOD. LSB: MOD. R Rot: MOD. L Rot: MOD. Postural strength: FAIR. Palpation: INCREASED MUSCLE TONE THROUGHOUT IVAN CERVICAL REGION. - Goals Goal 1:: DECREASE C/O NECK PAIN Goal Time Frame: 4-6 Weeks Goal 2:: INCREASE PAINFREE CERVICAL ROM TO IMPROVE READING, SLEEP, WORK, DRIVING AND RECREATIONAL FUNCTION Goal Time Frame: 4-6 Weeks Goal 3:: INSTRUCT IN PROPHYLAXIS - Rehabilitation Potential Rehabilitation Potential: Fair - Anticipated Interventions Patient/Client Instruction: Educate patient on: Condition, Plan of Care, Risk Factors, Benefits of Fitness Program For the Purpose of:: To improve self management Therapeutic Exercise to Include: Strength training, Body mechanics, Postural training, Flexibilty training, Passive ROM, Active ROM, Avis Exercises, Scapular Strength/Stabilization For the Purpose of:: To decrease pain, To increase ROM, To improve muscle performance and motor function, To increase tolerance to activity/condition/position, To improve ability of physical actions for home/community/work/leisure Manual Therapy Techniques to Include: Mobilization, Functional dry needling, Soft tissue mobilization For the Purpose of:: To decrease pain, To increase ROM, To improve nutrient delivery to tissue Cryotherapy (ice pack, ice massage): Yes Thermo therapy (hot pack): Yes Ultrasound (thermal/non thermal): Yes Intermittent cervical traction: Yes For the Purpose of:: To decrease pain, To increase ROM, To improve nutrient delivery to tissue Thank you for the opportunity to evaluate your patient. For Medicare and Medicare HMO plans, please review the plan of care and approve it. It will need to be FAXED BACK to us at [phone] for Medicare purposes. Please let me know if there are questions or concerns regarding this plan of care. Physician Signature: Date: <Electronically signed by Cert. CHERYL Snell PTT> 05/23/18 1238 CC: Rica Gee MD; Rickey Munson DO PLACIDO Signed For Medicare only, by signing this I certify the plan of care. Physicians Signature Date PT D/C SUMMARY (1) Observed: 03/20/2018 Status: F Source: [facility] 11:41 AM [facility] REPOSITORY [facility] Physical Therapy [facility] [address] [place] [address]. [address] [place] [address] Fax REHABILITATION SERVICES DISCHARGE SUMMARY MR#: [id number] Acct: [id number] Name: ANGELINA MANCERA Rep #: [id number] : 1955 62 From: Abbey Obregon PT, CertJosie MDT Referring Dr.: Rica Gee MD Status: REG RCR Insurance: [employer] INSURANCE HP - PT D/C Summary It has been my pleasure to treat ANGELINA MANCERA under orders from Rica Gee MD, for the diagnosis of CERVICALGIA for a total of 8 visit(s). Discharge Date: Please see the following information for a summary of their discharge status. - Subjective Subjective: PATIENT REPORTS SHE HAD PAIN THIS WEEKEND. WEEDING FOR ABOUT AN HOUR. I ALWAYS FEEL BETTER AFTER WORK OUTS. USUALLY DO NOT EX ON THE WEEKENDS. PATIENT REPORTS SHE FELT GREAT AFTER LAST PT SESSION. - Pain NECK Pain Intensity (Out of 10): 3 - Overall Improvement % Improvement: 80 - Objective Objective/Function: ALL GOALS MET. PATIENT HAS RESPONDED VERY WELL TO PT AND MIGHT BENEFIT FROM A FEW MORE SESSIONS HOWEVER SHE IS GOING OUT OF TOWN FOR ABOUT 3 WEEKS. SHE DEMONSTRATES AND COMMUNICATES A GOOD UNDERSTANDING OF ALL INSTRUCTIONS GIVEN TO THIS POINT. UPON EXAM, SHE STILL HAS CERVICAL MVMT LOSS SIMILAR TO INITIAL EVAL BUT SHE IS REPORTING LESS PAIN AND HEADACHES. NO UE SX'S. CERVICAL OSWESTRY HAS IMPROVED FROM 10 to 5 - Goals Goal 1:: DECREASE C/O NECK PAIN Goal Progress: Goal Met Goal 2:: IMPROVE PERSONAL CARE, LIFTING, READING, SLEEP, WORK, DRIVING AND RECREATIONAL FUNCTION Goal Progress: Goal Met Goal 3:: INSTRUCT IN PROPHYLAXIS Goal Progress: Goal Met - Plan Plan: D/C DUE TO PATIENT LEAVING TOWN. RECOMMENDED FOLLOW UP WITH PCP AFTER TRIP NEEDED. PATIENT AGREEABLE. - D/C Information If there are questions or concerns regarding this patient's physical therapy, please feel free to call me at [phone]. Thank you for the referral of this patient. Sincerely, Abbey Obregon <Electronically signed by Abbey Obregon PT, CertJosie LUNAT> 03/20/18 1141 CC: Rica Gee MD PLACIDO Signed RE-EVALUATION - PT (1) Observed: 03/12/2018 Status: F Source: [facility] 12:31 PM [facility] REPOSITORY [facility] Physical Therapy [facility] [address] [place] [address]. [address] [place] [address] Fax REEVALUATION / MEDICARE RECERTIFICATION PHYSICAL THERAPY MR#: [id number] Acct: [id number] Name: ANGELINA MANCERA Rep #: [id number] : 1955 62 From: Abbey Obregon PT, CertJosie LUNAT Referring Dr.: Rica Gee MD Status: REG RCR Insurance: [employer] INSURANCE Rica Gee MD, It has been my pleasure to treat ANGELINA MANCERA over the last 6 visits for CERVICALGIA. Please see the progress note below for an update on the physical therapy plan of care! Subjective: PATIENT REPORTS SHE TRIES TO DO HER EX'S EVERYDAY AND SHE HAS GOT TO THE POINT THAT SHE CAN GO ABOUT HER NORMAL DAILY ACTIVITIES WITH OCCASSIONAL MILD PAIN. IT IS STILL THERE THOUGH AND SHE WANTS A CURE. I AM IMPATIENT. THE NECK EX'S HELP HER WORK THE STIFFNESS OUT. WHEN SHE TURNS HER HEAD SHE GETS PAIN IN HER NECK ON THE SAME SIDE SHE IS TURNING TO. PATIENT REPORTS SHE FEELS CONFIDENT IN HOW TO DO HER HEP. PATIENT REPORTS SHE PURCHASED A TENS DEVICE AND IT IS HELPING. PATIENT REPORTS SHE WOULD LIKE TO CONTINUE PT FOR AT LEAST A FEW MORE VISITS TO SEE IF MORE US WILL HELP AND SEE IF SHE CAN ADD TO HER HEP. SHE WOULD ALSO LIKE FURTHER INSTRUCTION IN APPROPRIATE INDEP EX RESUMPTION. Objective/Function: IMPROVING. GOOD PROGRESS TOWARD SET PT GOALS. UPON EXAM, PATIENT HAS FULL IVAN UE ROM AND STRENGTH WFL AND TESTING DOES NOT PROVOKE PAIN. CERVICAL MVMT LOSS: R SB - MIN. L SB - MOD. IVAN ROT - MOD. EXT - NIL. RET - MIN TO MOD. FLEX/PRO - NIL. IVAN ROTATION TESTING PROVOKES PAIN AT THE END OF THE AVAILABLE RANGE LEFT GREATER THAN RIGHT. NECK OSWESTRY HAS IMPROVED FROM 19 TO 10. Plan Plan: CONT US AND THERE EX INDICATED PER ORIG POC. PATIENT IS AGREEABLE. Goals Goal 1:: DECREASE C/O NECK PAIN Goal Time Frame: 4-6 Weeks Goal Progress: Progressing Goal 2:: IMPROVE PERSONAL CARE, LIFTING, READING, SLEEP, WORK, DRIVING AND RECREATIONAL FUNCTION Goal Time Frame: 4-6 Weeks Goal Progress: Progressing Goal 3:: INSTRUCT IN PROPHYLAXIS Goal Time Frame: 4-6 Weeks Goal Progress: Progressing Anticipated Interventions Please do not hesitate to contact me at [phone] by phone or if you have questions or concerns regarding this new plan of care! Sincerely, Abbey Obregon <Electronically signed by Abbey Obregon PT, Cert. MDT> 03/12/18 1231 CC: Rica Gee MD PLACIDO Signed For Medicare only, by signing this I certify the plan of care. Physicians Signature Date INITAL EVALUATION (1) Observed: 02/01/2018 Status: F Source: [facility] - PT 1:16 PM [facility] REPOSITORY [facility] [address] [place] [address] Fax REHABILITATION SERVICES INITIAL EVALUATION MR#: [id number] Acct: [id number] Name: ANGELINA MANCERA Rep #: [id number] : 1955 62 From: Abbey Obregon PT, Cert. MDT Referring Dr.: Rica Gee MD Status: REG RCR Insurance: [employer] SELF PAY INSURANCE Patient's Visit Information ANGELINA MANCERA is a 62 year old F referred to Physical Therapy by Rica Gee MD with a diagnosis of CERVICALGIA. Date of Evaluation: 02/01/18 Physical Therapist: Abbey Obregon - Visit Plan Frequency: 2x /Week Duration: 4-6 Weeks Plan: POSTURE CORRECTION/STRENGTHENING, INSTRUCTION IN APPROPRIATE BODY MECHANICS AND ACTIVITY MODIFICATIONS. IVAN UE ROM, STRETCHING AND STRENGTHENING. HEP INSTRUCTION. - Subjective Subjective: Diagnosis: CERVICALGIA. 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 ABOUT 50% SITTING AND 50% STANDING. Disability: NO. Present symptoms: IVAN NECK PAIN RIGHT > LEFT. Present since: ABOUT 5 MONTHS. SX'S WORSENED DECEMBER 23 AFTER A 2.5 HOUR FLIGHT. Pain Scale: WORST 6/10, LEAST 0/10. Currently: 4/10. Commenced as a result of: FROM A LOT OF STRESS AND LOOKING DOWN. Symptoms at onset: LEFT NECK > RIGHT. Worse: SLEEPING, TURNING HEAD RIGHT OR LEFT DRIVING, WEIGHT LIFTING/SHOULDER WORK. Better: HEAT PACK. Disturbed sleep: YES. Previous history/Previous treatment: UNREMARKABLE. Dizziness: NO. Tinnitis: NO. Nausea: NO. Difficulty Swollowing: NO. Gait: NORMAL. Accidents: NO. Unexplained weight loss: NO. Imaging: NECK X-RAY ABOUT 3 YEARS AGO - NORMAL. TAKEN DUE TO DIZZINESS AND NAUSEA. PMH: UNREMARKABLE. Recent major surgery: UNREMARKABLE - Objective Sitting Posture: POOR. FORWARD HEAD AND ROUNDED SHOULDERS. NO TORTICOLLIS. Active Correction of posture: BETTER. Other Observations: INDEP GAIT AND TRANSFERS. Motor deficit: IVAN UE STRENGTH 5/5 WITH MMT. Sensory deficit: NO. ROM deficit: IVAN UE ROM WFL. Dural Signs: NEGATIVE IVAN UE'S. Cervical Mvmt Loss: Flex: NIL. Pro: NIL. Ext: MIN. Ret: MOD. RSB: MOD. LSB: MOD. R Rot: MOD. L Rot: MOD. Postural strength: FAIR. Palpation: NO ACUTE SPINE OR CERVICAL MUSCULATURE TENDERNESS. A FEW UPPER TRAP PALPABLE TRIGGER POINTS. - Goals Goal 1:: DECREASE C/O NECK PAIN Goal Time Frame: 4-6 Weeks Goal 2:: IMPROVE PERSONAL CARE, LIFTING, READING, SLEEP, WORK, DRIVING AND RECREATIONAL FUNCTION Goal Time Frame: 4-6 Weeks Goal 3:: INSTRUCT IN PROPHYLAXIS Goal Time Frame: 4-6 Weeks - Rehabilitation Potential Rehabilitation Potential: Good - Anticipated Interventions Thank you for the opportunity to evaluate your patient. For Medicare and Medicare HMO plans, please review the plan of care and approve it. It will need to be FAXED BACK to us at [phone] for Medicare purposes. Please let me know if there are questions or concerns regarding this plan of care. Physician Signature: Date: <Electronically signed by Abbey Obregon PT, Cert. MDT> 02/01/18 1316 CC: Rica Gee MD PLACIDO Signed For Medicare only, by signing this I certify the plan of care. Physicians Signature Date ALLERGIES ALLERGIES No Allergies Records FoundENCOUNTERS ENCOUNTERS ADMIT/DISCHARGE ACCOUNT ADMITTING ENCOUNTER LOCATION SOURCE NUMBER CLASS 09/10/2018 [id number] Ambulatory [facility] 2 [facility] ing:MTLAB Repository 09/05/2018 [id number] Ambulatory [facility] 7 [facility] ing:LABSPEC Repository 08/22/2018 [id number] Ambulatory [place] 7 [facility] ing:CT Repository 07/30/2018 [id number] Ambulatory [facility] [place] 0 [facility] ing:LABSPEC Repository 07/09/2018/ [id number] Ambulatory [place] 8 9 [facility] ing:PT Repository 04/23/2018 [id number] Ambulatory [facility] [place] 0 [facility] ing:MASS Repository 03/20/2018/ [id number] Ambulatory [place] 8 9 [facility] ing:PT Repository PAYERS PAYERS ENCOUNTER GUARANTOR PAYER SUBSCRIBER SOURCE 09/10/2018 MAUREEN MANCERA1319 Primary MAUREEN TALBERT: [place] Insurance:[employer] [id number] [place] [place] [facility] Number: Hospital [id number]: 330 [id number] Repository [phone] () Date:[id number] [place], [place] [address]OU: 09/10/2018 Secondary NOT GIVENUNK [place] Insurance:SELF PAY [facility] Number: Effective Repository Date:2018-09-10 09/05/2018 MAUREEN MANCERA1319 Primary MAUREEN TALBERT: [place] Insurance:[employer] [id number] [place] [facility] Number: Hospital [id number]: ([phone] [id number] Repository [phone] (HP) Date:[id number] [place], [place] [address]VG: 09/05/2018 Secondary NOT GIVENUNK [place] Insurance:SELF PAY [facility] Number: Effective Repository Date:2018-09-05 08/22/2018 MAUREEN MANCERA1319 Primary MAUREEN TALBERT: [place] Insurance:[employer] [id number] [place] [facility] Number: Hospital [id number]: ([phone] [id number] Repository [phone] (HP) Date:3492-14-99[address] [place], [place] [address]HC: 08/22/2018 Secondary NOT GIVENUNK [place] Insurance:SELF PAY [facility] Number: Effective Repository Date:2018-08-20 07/30/2018 MAUREEN MANCERA1319 Primary MAUREEN HARRISONB: [place] Insurance:[employer] [id number] [place] Number: Hospital [id number]: (330 [id number] Repository [phone] (HP) Date:6954-12-61EB [address] [place], [place] [address]KW: 07/30/2018 Secondary NOT GIVENUNK [place] Insurance:SELF PAY [facility] Number: Effective Repository Date:2018-07-30 07/09/2018 MAUREEN MANCERA1319 Primary MAUREEN HARRISONB: [place] Insurance:[employer] [id number] [place] Number: Hospital [id number]: ([phone]) [id number] Repository [phone] (HP) Date:5352-90-36PZ [address] [place] [address]MJ: 07/09/2018 Secondary NOT GIVENUNK [place] Insurance:SELF PAY [facility] Number: Effective Repository Date:2018-05-18 04/23/2018 MAUREEN MANCERA1319 Primary NOT GIVENUNK [place] Insurance:SELF PAY [facility] Hospital [id number]: (413) Number: Effective Repository [phone] (HP) Date:2016-08-24 03/20/2018 MAUREEN MARTINEZ9 Primary MAUREEN HARRISONB: [place] Insurance:[employer] [id number] [place] Number: Hospital [id number]: ([phone]) [id number] Repository [phone] (HP) Date:1508-86-39HN [address] [address]CO: 03/20/2018 Secondary NOT GIVENUNK [place] Insurance:SELF PAY [facility] Effective Repository Date:2018-01-30
== END ==
PROVIDERS: Family Provider Family Medicine; PCP Family Medicine; Referring Provider Family Medicine; Visit Provider Family Medicine
DX: R10.9 Unspecified abdominal pain (principal)
CPT/HCPCS: 74177; Q9967

== ENCOUNTER → 2018-09-05 12:21 | Outpatient (CLI) | payer OTHER, SELFPAY ==
[2018-09-07 12:18] LABS: HPV Reflexed? NOT INDICATED
--- OUTSIDE RECORDS SUMMARY | 2018-10-22 15:45 | XMS RPT_ITS ---
:1955 Author Organization OHIP Support Name Relationship Address Phone MAUREEN MANCERA Unavailable [address] + [place] [address] [facility] Unavailable [address] + [place] [address] MAUREEN MANCERA Unavailable [address] + [place] [address] [facility] Unavailable [address] + [place] [address] MAUREEN MANCERA Unavailable [address] + [place] [address] [facility] Unavailable [address] + [place] [address] MAUREEN MANCERA Unavailable [address] + [place] [address] [facility] Unavailable [address] + [place] [address] MAUREEN MANCERA Unavailable [address] + [place] [address] [facility] Unavailable [address] + [place] [address] MAUREEN MANCERA Unavailable [address] + [place] [address] [facility] Unavailable [address] + [place] [address] MAUREEN MANCERA Unavailable [address] + [place] [address] [facility] Unavailable [address] + [place] [address] MAUREEN MANCERA Unavailable [address] + [place] [address] [facility] Unavailable [address] + [place] [address] Care Team Providers Name Role Phone Rica Gee Attending Unavailable Rica Gee Referring Unavailable Jolliff, Rica Primary Care Unavailable Jabour, Vincent Attending Unavailable Jabour, Vincent Referring Unavailable Jolliff, Rica Primary Care Unavailable DOCTOR, OUT OF TOWN Attending Unavailable Jolliff, Rica Primary Care Unavailable Jolliff, Rica Attending Unavailable Jolliff, Rica Referring Unavailable Jolliff, Rica Primary Care Unavailable Rickey Munson Attending Unavailable Jolliff, Rica Primary Care Unavailable Jabour, Vincent Attending Unavailable Jabour, Vincent Referring Unavailable Jolliff, Rica Primary Care Unavailable Jolliff, Rica Attending Unavailable Jolliff, Rica Primary Care Unavailable Jolliff, Rica Attending Unavailable Jolliff, Rica Referring Unavailable Jolliff, Rica Primary Care Unavailable PROBLEMS PROBLEMS DATE TYPE CONDITION / CODE ATTENDING STATUS SOURCE 09/05/2018 Unknown Z12.4 - Encounter Rica Gee Active [facility] for screening for Community malignant neoplasm [facility] cervix / Repository Z12.4(ICD-10) 07/09/2018 Unknown M50.322 - Other Arpit, Rickey Active [facility] cervical disc Community degeneration at Hospital C5-C6 level / Repository M50.322(ICD-10) 03/21/2018 Unknown M54.2 - Rica Gee Active [facility] Cervicalgia / Community M54.2(ICD-10) Hospital Repository PROCEDURES PROCEDURES No Procedure Records FoundRESULTS RESULTS COLON BIOPSY (CHOOSE Observed: 10/12/2018 Status: F Source: [facility] SITE) 11:15 AM [facility] REPOSITORY Patient: ANGELINA MANCERA : 1955 (63/F) Acct Num: [id number] Phys: Twan Waters Unit Num: [id number] Loc: LABSPEC Specimen: [id number] Received: 10/12/18 - 160 Spec Type: COLON BX TISSUES 1 TISSUES: A. COLON BIOPSY B. Ileum, NOS GROSS DESCRIPTION A - Received in fixative is one container labeled with the patient's name and designated right and left colon biopsy. The specimen consists of multiple irregular fragments of light baum soft tissue that in aggregate measure 1 x 0.3 x 0.1 cm. The specimen is totally submitted in one cassette. B - Received in fixative is one container labeled with the patient's name and designated terminal ileum biopsy. The specimen consists of multiple irregular fragments of light baum soft tissue that in aggregate measure 0.5 x 0.2 x 0.1 cm. The specimen is totally submitted in one cassette. / AM:jc 10/15/18 TC:4 CPT: 55507 x2 HEADER OPERATION: Colonoscopy with biopsies PRE-OP DIAGNOSIS: Chronic diarrhea TISSUE SUBMITTED: A. Right and left colon biopsies, rule out microscopic colitis, B. Terminal ileum biopsies, rule out Crohn's MICROSCOPIC DESCRIPTION Slides are reviewed. MICROSCOPIC DIAGNOSIS A. Right and left colon biopsies: Colonic mucosa with mild lymphoid hyperplasia. No active inflammation or microscopic colitis found. B. Terminal ileum, biopsy: Enteric mucosa consistent with terminal ileum, focally denuded. No active inflammation or granuloma found. CE:jc 10/16/18 Signed Martinez Shen MD <signature on file> Performed By: #### PCOLBX #### [facility] [address] [place], [place], [address] CRP Collected: 09/10/2018 Status: F Source: [facility] 4:15 PM [facility] REPOSITORY TYPE CODE TESTS RESULT OUT OF RANGE REFERENCE UNITS LAB L501.6710 0.0-3.0 mg/L Normal < 2.90 C-REACTIVE PROT Result Comment: C-Reactive Protein (CRP) provides useful information for the diagnosis, therapy and monitoring of inflammatory processes and associated diseases. For the evaluation of Relative Risk for Cardiovascular Disease, a High Sensitivity CRP (HSCRP) should be ordered. Performed By: #### L501.6710 #### [facility] [place], [place], [address] CELIAC DISEASE Collected: 09/10/2018 Status: F Source: [facility] 4:15 PM [facility] REPOSITORY TYPE CODE TESTS RESULT OUT OF RANGE REFERENCE UNITS LAB L3200.1400 87-352 mg/dL Normal IMMUNO A 208 Result Comment: Performed at: [address] [id number] Transportation Supervisor: Twan Mancilla PhD, Phone: [phone] LAB L3028.5381 0-3 U/mL Normal tTG IGA <2 Result Comment: Negative 0 - 3 Weak Positive 4 - 10 Positive >10 Tissue Transglutaminase (tTG) has been identified as the endomysial antigen. Studies have demonstr- ated that endomysial IgA antibodies have over 99% specificity for gluten sensitive enteropathy. LAB L3410.2975 Negative Normal ENDOMYSIAL IGA Negative Performed By: #### L3410.2400 #### [facility] (refer to report for specific site) refer to report for address and phone number PAP I-G W/RFX HRHPV Collected: 09/05/2018 Status: F Source: [facility] 10:00 AM [facility] REPOSITORY Order Comment: CYTOLOGY INFORMATION: - CLINICAL INFORMATION: - DATE LMP/MENOPAUSE: MENOPAUSE - COLLECTION VIAL: Thin Prep Vial - VP SECURITIES SOURCE: CERVICAL/ENDOCERVICAL - COLLECTION TECHNIQUE: BRUSH/SPATULA Specimen Comment: [id number] Specimen Comment: Source.............Cervix;Endocervix Specimen Comment: Other..............Post Menopausal [...] Normal PERFORM Comment Result Comment: Mayra Overton, Tube Maker (ASCP) LAB L7400.2575 . Normal TEST METHOD [...] was performed. Performed at: [facility] - [facility] [address] [place] [id number] Transportation Supervisor: Maryellen Rosas MD, Phone: [phone] Performed By: #### L7400.0350 #### [facility] (refer to report for specific site) refer to report for address and phone number CREATININE FINGERSTICK Collected: 08/22/2018 Status: F Source: [place] 7:29 AM [facility] REPOSITORY TYPE CODE TESTS RESULT OUT OF RANGE REFERENCE UNITS LAB L9100.0210 0.55-1.02 mg/dL Normal CREATININE WB 0.8 LAB L9100.0220 >60 mL/min EGFR WB Normal > 60.0000 Performed By: #### L9100.0200 #### [facility] Point of Care [address] [place] [address] ABDOMEN/PELVIS WITH Observed: 08/22/2018 Status: F Source: [facility] CONTRAST 7:23 AM [facility] REPOSITORY [facility] Imaging Services [address] [place] [address] Abdomen/Pelvis WITH Contrast MR#: [id number] Acct: [id number] Name: ANGELINA MANCERA Rep #: [id number] : 1955 F 63 From: Yaima Fitzpatrick MD PCP: Rica Gee MD Status: REG CLI Study: Abdomen/Pelvis WITH Contrast Date of Exam: 08/22/18 Exam# [id number] Ordering Dr: Rica Gee MD STUDY: CT [...] Service support , CC: Rica Gee MD Veneer Manufacturer: Signed Observed: 07/30/2018 Status: F Source: [facility] CDIFF (MOLECULAR) 10:15 AM [facility] REPOSITORY Cdiff-Molecular Normal Reference Range = Negative C. Diff DNA Negative- No toxigenic C. Diff DNA Detected NAAT METHOD Testing was performed using nucleic acid amplification Performed By: #### M100.6796, M100.637 #### [facility] [address] [place], [address] Observed: 07/30/2018 Status: F Source: [facility] ENTERIC PATHOGEN 10:15 [facility] PANEL STOOL REPOSITORY EP PANEL STOOL Normal [...] Detected Performed By: #### M100.6796, M100.637 #### [place] [id number] [place], [address] Observed: 07/30/2018 Status: F Source: [facility] OVA AND PARASITES 10:15 [facility] REPOSITORY O + P OVA AND PARASITES EXAM, ROUTINE These results were obtained using wet preparation(s) and trichrome stained smear. This test does not include testing for Crytosporidium parvum, Cyclospora, or Microsporidia. [facility] AT [facility]. ORIGINAL REPORT ON FILE IN LAB CONTAINS ADDITIONAL TEST SITE INFORMATION. Ova/Parasite Exam NO OVA, CYSTS, OR PARASITES FOUND. Performed By: #### M600.5000 #### [facility] [address] [place], [address] PT D/C SUMMARY (1) Observed: 07/09/2018 Status: F Source: [place] 2:59 PM [facility] REPOSITORY [facility] [address] [place] [address] Fax REHABILITATION SERVICES DISCHARGE SUMMARY MR#: [id number] Acct: [id number] Name: ANGELINA MANCERA Rep #: [id number] : 1955 62 From: Abbey Obregon PT, [...] please feel free to call me at [phone]. Thank you for the referral of this patient. Sincerely, Abbey Obregon <Electronically signed by Abbey Obregon PTCert. LUNAT> 07/09/18 1459 CC: Rica Gee MD; Rickey Munson DO PLACIDO Signed RE-EVALUATION - PT (1) Observed: 07/03/2018 Status: F Source: [facility] 8:43 AM [facility] REPOSITORY [facility] [address] [place], [place] [address] Fax REEVALUATION / MEDICARE RECERTIFICATION PHYSICAL THERAPY MR#: [id number] Acct: [id number] Name: ANGELINA MANCERA Rep #: [id number] : 1955 62 From: Cert. CHERYL Snell PTT Referring Dr.: Rickey Munson DO Status: REG RCR Insurance: [employer] SELF PAY INSURANCE Rickey Munson, It has [...] do not hesitate to contact me at [phone] by phone or if you have questions or concerns regarding this new plan of care! Sincerely, Abbey Obregon <Electronically signed by Abbey Obregon PT, Cert. MDT> 07/03/18 0843 CC: Rica Gee MD; Rickey Munson DO PLACIDO Signed For Medicare only, by signing this I certify the plan of care. Physicians Signature Date INITAL EVALUATION (1) Observed: 05/23/2018 Status: F Source: [facility] Barr PT 12:38 PM [facility] REPOSITORY [facility] [address] [place] [address] Fax REHABILITATION SERVICES INITIAL EVALUATION MR#: [id number] Acct: [id number] Name: ANGELINA MANCERA Rep #: [id number] : 1955 62 From: Abbey Obregon PT, Cert. MDT Referring Dr.: Rickey Munson DO Status: REG RCR [facility] SELF PAY INSURANCE Patient's Visit Information ANGELINA [...] STRENGTHENING. HEP INSTRUCTION. 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 Present symptoms: IVAN NECK [...] YES. Previous history/Previous treatment: PT HERE AT [facility]. Dizziness: NO. Tinnitis: NO. Nausea: NO. Difficulty Swollowing: NO. Gait: NORMAL. Accidents: NO. Unexplained weight loss: NO. Imaging: X-RAY AT [facility] OF NECK - ARTHRITIS AT C56. [...] to be FAXED BACK to us at [phone] for Medicare purposes. Please let me know if there are questions or concerns regarding this plan of care. Physician Signature: Date: <Electronically signed by Abbey Obregon PT, Cert. MDT> 05/23/18 1238 CC: Rica Gee MD; Rickey Munson DO PLACIDO Signed For Medicare only, by signing this I certify the plan of care. Physicians Signature Date PT D/C SUMMARY (1) Observed: 03/20/2018 Status: F Source: [facility] 11:41 AM [facility] REPOSITORY [facility] [address] [place] [address] Fax REHABILITATION SERVICES DISCHARGE SUMMARY MR#: [id number] Acct: [id number] Name: ANGELINA MANCERA Rep #: [id number] : 1955 62 From: Abbey Obregon PT, [...] please feel free to call me at [phone]. Thank you for the referral of this patient. Sincerely, Abbey Obregon <Electronically signed by Cert. AMBAR Snell PT> 03/20/18 1141 CC: Rica Gee MD PLACIDO Signed RE-EVALUATION - PT (1) Observed: 03/12/2018 Status: F Source: [facility] 12:31 PM [facility] REPOSITORY [facility] [address] [facility] [place] [address] Fax REEVALUATION / MEDICARE RECERTIFICATION PHYSICAL THERAPY MR#: [id number] Acct: [id number] Name: ANGELINA MANCERA Rep #: [id number] : 1955 62 From: Cert. AMBAR Snell PT Referring Dr.: Rica Gee MD Status: REG [...] do not hesitate to contact me at [phone] by phone or if you have questions or concerns regarding this new plan of care! Sincerely, Abbey Obregon <Electronically signed by Abbey Obregon PT, CertJosie LUNAT> 03/12/18 1231 CC: Rica Gee MD PLACIDO Signed For Medicare only, by signing this I certify the plan of care. Physicians Signature Date INITAL EVALUATION (1) Observed: 02/01/2018 Status: F Source: [facility] - PT 1:16 PM [facility] REPOSITORY [facility] [address] [place] [address]. [address] [place] [address] Fax REHABILITATION SERVICES INITIAL EVALUATION MR#: [id number] Acct: [id number] Name: ANGELINA MANCERA Rep #: [id number] : 1955 62 From: Abbey Obregon PT, CertJosie MDT Referring Dr.: Rica Gee MD Status: REG RCR Insurance: [employer] SELF PAY INSURANCE Patient's Visit Information ANGELINA [...] INSTRUCTION. - Subjective Subjective: Diagnosis: CERVICALGIA. 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 [...] to be FAXED BACK to us at [phone] for Medicare purposes. Please let me know [...] ACCOUNT ADMITTING ENCOUNTER LOCATION SOURCE NUMBER CLASS 10/12/2018 [id number] Ambulatory [facility] 7 [facility] ing:LABSPEC Repository 09/10/2018 [id number] Ambulatory [facility] 2 [facility] ing:MTLAB Repository 09/05/2018 [id number] Ambulatory [facility] 7 [facility] ing:LABSPEC Repository 08/22/2018 [id number] Ambulatory [facility] 7 [facility] ing:CT Repository 07/30/2018 [id number] Ambulatory [facility] 0 [facility] ing:LABSPEC Repository 07/09/2018/ [id number] Ambulatory [facility] 9 [facility] ing:PT Repository 04/23/2018 [id number] Ambulatory [facility] 0 [facility] ing:MASS Repository 03/20/2018/ [id number] Ambulatory [facility] 9 [facility] ing:PT Repository PAYERS PAYERS ENCOUNTER GUARANTOR PAYER SUBSCRIBER SOURCE 10/12/2018 MAUREEN MARTINEZ9 Primary MAUREEN TALBERT: [facility] [address] Insurance:CORESOURCEP [id number] [address]Nwo: 330 [id number] Repository [phone] (HP) Date:7370-34-50[address] [place] [address]: 10/12/2018 Secondary NOT GIVENUNK [facility] Insurance:SELF PAY [facility] Number: Effective Repository Date:2018-10-12 09/10/2018 MAUREEN MANCERA1319 Primary MAUREEN HARRISONB: [facility] [address] Insurance:CORESOURCEP [id number] [facility] Number: Hospital [address]All: ([phone]) [id number] Repository [phone] (HP) Date:5858-18-74QN [address] [place] [address]EE: 09/10/2018 Secondary NOT GIVENUNK [facility] Insurance:SELF PAY [facility] Number: Effective Repository Date:2018-09-10 09/05/2018 MAUREEN MARTINEZ9 Primary MAUREEN HARRISONB: [facility] [place] Insurance:CORESOURCEP [id number] Number[facility] Hospital [address]Hjt: (667) [id number] Repository [phone] (HP) Date:7120-07-70FF [address] [place] [address]CT: 09/05/2018 Secondary NOT GIVENUNK [facility] Insurance:SELF PAY [facility] Number: Effective Repository Date:2018-09-05 08/22/2018 MAUREEN MARTINEZ9 Primary MAUREEN TALBERT: [facility] [place] Insurance:CORESOURCEP [id number] [facility] Number: Hospital [address]Yfb: (138) [id number] Repository [phone] (HP) Date:5470-81-70JM [address] [place] [id number]: 08/22/2018 Secondary NOT GIVENUNK [facility] Insurance:SELF PAY [facility] Number: Effective Repository Date:2018-08-20 07/30/2018 MAUREEN MARTINEZ9 Primary MAUREEN TALBERT: [facility] [place] Insurance:CORESOURCEP [id number] [place] Number: Hospital [id number]: ([phone] [id number] Repository [phone] (HP) Date:7665-43-82QB [address] [place] [address]UG: 07/30/2018 Secondary NOT GIVENUNK [facility] Insurance:SELF PAY [facility] Hospital Number: Effective Repository Date:2018-07-30 07/09/2018 MAUREEN MANCERA1319 Primary MAUREEN TALBERT: [facility] [place] Insurance:CORESOURCEP [id number] [place] Number: Hospital [address]Hbj: (330) [id number] Repository [phone] (HP) Date:7589-96-95UQ [address] [place] [place] [address]SN: 07/09/2018 Secondary NOT GIVENUNK [facility] Insurance:SELF PAY [facility] Number: Effective Repository Date:2018-05-18 04/23/2018 MAUREEN MANCERA1319 Primary NOT GIVENUNK [facility] [place] Insurance:SELF [place] [facility] Hospital [address]Ntg: (330) Number: Effective Repository [phone] (HP) Date:2016-08-24 03/20/2018 MAUREEN MANCERA1319 Primary MAUREEN Gillis CHRISTYB: [facility] [place] [facility] [id number] [place] Number: Hospital [address]Ldy: ([phone]) [id number] Repository [phone] (HP) Date:2167-93-39BL [address] [place] [address]GQ: 03/20/2018 Secondary NOT GIVENUNK [facility] Insurance:SELF PAY [facility] Hospital Number: Effective Repository Date:2018-01-30
== END ==
PROVIDERS: Family Provider Family Medicine; PCP Family Medicine; Referring Provider Family Medicine; Visit Provider Family Medicine
DX: Z12.4 Encounter for screening for malignant neoplasm of cervix (principal)
CPT/HCPCS: 88175; G0145

== ENCOUNTER → 2018-09-10 16:07 | Outpatient (CLI) | payer OTHER, SELFPAY ==
[2018-09-10 18:20] LABS: CRP < 2.90 mg/L (0.0-3.0)
[2018-09-12 16:51] LABS: Endomysial Antibody IgA Negative (Negative)
[2018-09-12 18:24] LABS: Immunoglobulin A 208 mg/dL (87-352); t-Transglutaminase IgA <2 U/mL (0-3)
--- OUTSIDE RECORDS SUMMARY | 2018-12-13 08:57 | XMS RPT_ITS ---
:1955 Author Organization OHIP Support Name Relationship Address Phone MAUREEN MANCERA Unavailable [address] + [place] [address] [facility] Unavailable [address] + [place] [address] MAUREEN MANCERA Unavailable [address] + [place] [address] [facility] Unavailable [address] + [place] [address] MAUREEN MANCERA Unavailable [address] + [place] [address] [facility] Unavailable [address] + [place] [address] MAUREEN MANCERA Unavailable [address] + [place] [address] [facility] Unavailable [address] + [place] [address] MAUREEN MANCERA Unavailable [address] + [place] [address] [facility] Unavailable [address] + [place] [address] MAUREEN MANCERA Unavailable [address] + [place] [address] [facility] Unavailable [address] + [place] [address] MAUREEN MANCERA Unavailable [address] + [place] [address] [facility] Unavailable [address] + [place] [address] MAUREEN MANCERA Unavailable [address] + [place] [address] [facility] Unavailable [address] + [place] [address] Care Team Providers Name Role Phone Rica [...] [facility] for screening for Community malignant neoplasm [facility] cervix / Repository Z12.4(ICD-10) 07/09/2018 Unknown M50.322 - Other Arpit, Rickey Active [facility] cervical disc Community degeneration at Hospital C5-C6 level / Repository M50.322(ICD-10) 03/21/2018 Unknown M54.2 - Rica Gee Active [facility] Cervicalgia / Community M54.2(ICD-10) Hospital Repository PROCEDURES PROCEDURES No Procedure Records FoundRESULTS RESULTS COLON BIOPSY (CHOOSE Observed: 10/12/2018 Status: F Source: [facility] SITE) 11:15 AM [facility] Patient: ANGELINA MANCERA : 1955 (63/F) Acct Num: [id number] Phys: Twan Waters Unit Num: [id number] Loc: LABSPEC Specimen: [id number] Received: 10/12/18 - [...] one cassette. / AM:jc 10/15/18 TC:4 CPT: 86633 x2 HEADER OPERATION: Colonoscopy with biopsies PRE-OP [...] on file> Performed By: #### PCOLBX #### [facility] [address] [place], [place], [address] CRP Collected: 09/10/2018 Status: F Source: [place] 4:15 PM [facility] TYPE CODE TESTS RESULT OUT OF RANGE REFERENCE UNITS LAB L501.6710 0.0-3.0 mg/L Normal < 2.90 C-REACTIVE PROT Result Comment: C-Reactive Protein (CRP) provides useful information for the diagnosis, therapy and monitoring of inflammatory processes and associated diseases. For the evaluation of Relative Risk for Cardiovascular Disease, a High Sensitivity CRP (HSCRP) should be ordered. Performed By: #### L501.6710 #### [facility] [place], [place], [address] CELIAC DISEASE Collected: 09/10/2018 Status: F Source: [facility] 4:15 PM [facility] TYPE CODE TESTS RESULT OUT OF RANGE REFERENCE UNITS LAB L3200.1400 87-352 mg/dL Normal IMMUNO A 208 Result Comment: Performed at: [address] [id number] Folder Operator: Twan Mancilla PhD, Phone: [phone] LAB L3336.7812 0-3 U/mL Normal tTG IGA <2 Result [...] 09/05/2018 Status: F Source: [place] 10:00 AM [facility] Order Comment: CYTOLOGY INFORMATION: - CLINICAL INFORMATION: - DATE LMP/MENOPAUSE: MENOPAUSE - COLLECTION VIAL: Thin Prep Vial - DIGITAL PRODUCTION MANAGER SOURCE: CERVICAL/ENDOCERVICAL - COLLECTION TECHNIQUE: BRUSH/SPATULA Specimen Comment: [id number] Specimen Comment: Source.............Cervix;Endocervix Specimen Comment: Other..............Post Menopausal [...] Normal PERFORM Comment Result Comment: Mayra Overton, Scientific Systems Analyst (ASCP) LAB L7400.2575 . Normal TEST METHOD [...] was performed. Performed at: [facility] [address] [place] [id number] Folder Operator: Maryellen Rosas MD, Phone: [phone] Performed By: #### L7400.0350 #### [facility] (refer to report for specific site) refer to report for address and phone number CREATININE FINGERSTICK Collected: 08/22/2018 Status: F Source: [place] 7:29 AM [facility] TYPE CODE TESTS RESULT OUT OF RANGE REFERENCE UNITS LAB L9100.0210 0.55-1.02 mg/dL Normal CREATININE WB 0.8 LAB L9100.0220 >60 mL/min EGFR WB Normal > 60.0000 Performed By: #### L9100.0200 #### [facility] Point of Care [address] [place] [address] ABDOMEN/PELVIS WITH Observed: 08/22/2018 Status: F Source: [place] CONTRAST 7:23 AM [facility] Imaging Services [address] [place] [address] Abdomen/Pelvis WITH Contrast MR#: [id number] Acct: [id number] Name: ANGELINA MANCERA Rep #: [id number] : 1955 F 63 From: Yaima Fitzpatrick MD PCP: Rica Gee MD Status: REG CLI Study: Abdomen/Pelvis WITH Contrast Date of Exam: 08/22/18 Exam# [id number] Ordering Dr: Rica Gee MD STUDY: CT [...] Service support , CC: Rica Gee MD Deliverer Merchandise: Signed Observed: 07/30/2018 Status: F Source: [place] CDIFF (MOLECULAR) 10:15 AM [facility] Cdiff-Molecular Normal Reference Range = Negative C. Diff DNA Negative- No toxigenic C. Diff DNA Detected NAAT METHOD Testing was performed using nucleic acid amplification Performed By: #### M100.6796, M100.637 #### [facility] [address] [place], [address] Observed: 07/30/2018 Status: F Source: [place] ENTERIC PATHOGEN 10:15 [facility] PANEL STOOL REPOSITORY EP PANEL STOOL Normal [...] Detected Performed By: #### M100.6796, M100.637 #### [place] [address] [facility], [address] Observed: 07/30/2018 Status: F Source: [facility] OVA AND PARASITES 10:15 [facility] REPOSITORY O + P OVA AND PARASITES EXAM, ROUTINE These results were obtained using wet preparation(s) and trichrome stained smear. This test does not include testing for Crytosporidium parvum, Cyclospora, or Microsporidia. TESTING PERFORMED AT [facility]. ORIGINAL REPORT ON FILE IN LAB CONTAINS ADDITIONAL TEST SITE INFORMATION. Ova/Parasite Exam NO OVA, CYSTS, OR PARASITES FOUND. Performed By: #### M600.5000 #### [facility] [address] [facility] [place], [address] PT D/C SUMMARY (1) Observed: 07/09/2018 Status: F Source: [place] 2:59 PM [facility] [address] [place] [address] Fax REHABILITATION SERVICES DISCHARGE SUMMARY MR#: [id number] Acct: [id number] Name: ANGELINA MANCERA Rep #: [id number] : 1955 62 From: Abbey Obregon PT, [...] please feel free to call me at [phone]. Thank you for the referral of this patient. Sincerely, Abbey Obregon <Electronically signed by Abbey Obregon PTCert. LUNAT> 07/09/18 1459 CC: Rica Gee MD; Rickey Munson DO PLACIDO Signed RE-EVALUATION - PT (1) Observed: 07/03/2018 Status: F Source: [place] 8:43 AM [facility] [address] [place], [place] [address] Fax REEVALUATION / MEDICARE RECERTIFICATION PHYSICAL THERAPY MR#: [id number] Acct: [id number] Name: ANGELINA MANCERA Rep #: [id number] : 1955 62 From: Cert. CHERYL Snell PTT Referring Dr.: Rickey Munson DO Status: REG RCR Insurance: [employer] SELF PAY INSURANCE Rickey Munson, It has [...] do not hesitate to contact me at [phone] by phone or if you have questions [...] F Source: [place] Barr PT 12:38 PM [facility] [address] [place] [address] Fax REHABILITATION SERVICES INITIAL EVALUATION MR#: [id number] Acct: [id number] Name: ANGELINA MANCERA Rep #: [id number] : 1955 62 From: Abbey Obregon PT, Cert. MDT Referring Dr.: Rickey Munson DO Status: REG RCR [facility] S[facility]F [facility]URANCE Patient's Visit Information ANGELINA [...] STRENGTHENING. HEP INSTRUCTION. 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 Disability: NO. Present symptoms: IVAN NECK [...] YES. Previous history/Previous treatment: PT HERE AT [facility]. Dizziness: NO. Tinnitis: NO. Nausea: NO. Difficulty Swollowing: NO. Gait: NORMAL. Accidents: NO. Unexplained weight loss: NO. Imaging: X-RAY AT [facility] OF NECK - ARTHRITIS AT C56. [...] to be FAXED BACK to us at [phone] for Medicare purposes. Please let me know [...] 03/20/2018 Status: F Source: [place] 11:41 AM [facility] [address] [place] [address] Fax REHABILITATION SERVICES DISCHARGE SUMMARY MR#: [id number] Acct: [id number] Name: ANGELINA MANCERA Rep #: [id number] : 1955 62 From: Abbey Obregon PT, [...] please feel free to call me at [phone]. Thank you for the referral of this patient. Sincerely, Abbey Obregon <Electronically signed by Cert. AMBAR Snell PT> 03/20/18 1141 CC: Rica Gee MD PLACIDO Signed RE-EVALUATION - PT (1) Observed: 03/12/2018 Status: F Source: [place] 12:31 PM [facility] [address] [facility] [place] [address] Fax REEVALUATION / MEDICARE RECERTIFICATION PHYSICAL THERAPY MR#: [id number] Acct: [id number] Name: ANGELINA MANCERA Rep #: [id number] : 1955 62 From: Cert. AMBAR Snell [...] do not hesitate to contact me at [phone] by phone or if you have questions or concerns regarding this new plan of care! Sincerely, Abbey Obregon <Electronically signed by Abbey Obregon PT, CertJosie LUNAT> 03/12/18 1231 CC: Rica Gee MD PLACIDO Signed For Medicare only, by signing this I certify the plan of care. Physicians Signature Date INITAL EVALUATION (1) Observed: 02/01/2018 Status: F Source: [place] - PT 1:16 PM [facility] [address] [place] [address]. [address] [place] [address] Fax REHABILITATION SERVICES INITIAL EVALUATION MR#: [id number] Acct: [id number] Name: ANGELINA MANCERA Rep #: [id number] : 1955 62 From: Abbey Orbegon PT, CertJosie MDT Referring Dr.: Rica Gee MD Status: REG RCR Insurance: [employer] SELF PAY INSURANCE Patient's Visit Information ANGELINA MANCERA is a 62 year old F referred to Physical Therapy by iRca Gee MD with a diagnosis of CERVICALGIA. Date of Evaluation: 02/01/18 Physical Therapist: Abbey Obregon - Visit Plan Frequency: 2x /Week Duration: 4-6 Weeks Plan: POSTURE CORRECTION/STRENGTHENING, INSTRUCTION IN APPROPRIATE BODY MECHANICS AND ACTIVITY MODIFICATIONS. IVAN UE ROM, STRETCHING AND STRENGTHENING. HEP INSTRUCTION. - Subjective Subjective: Diagnosis: CERVICALGIA. 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 Please let me know if there are questions or concerns regarding this plan of care. Physician Signature: Date: <Electronically signed by Abbey Obregno PT, Cert. MDT> 02/01/18 1316 CC: Rica Gee MD PLACIDO Signed For Medicare only, by signing this I certify the plan of care. Physicians Signature Date ALLERGIES ALLERGIES No Allergies Records FoundENCOUNTERS ENCOUNTERS ADMIT/DISCHARGE ACCOUNT ADMITTING ENCOUNTER LOCATION SOURCE NUMBER CLASS 10/12/2018 [id number] Ambulatory [facility] 7 [facility] ing:LABSPEC Repository 09/10/2018 [id number] Ambulatory [facility] 2 [facility] ing:MTLAB Repository 09/05/2018 [id number] Ambulatory [facility] Boyd 7 [facility] ing:LABSPEC Repository 08/22/2018 [id number] Ambulatory [facility] 7 [facility] ing:CT Repository 07/30/2018 [id number] Ambulatory [facility] Casey 0 [facility] ing:LABSPEC Repository 07/09/2018/ [id number] Ambulatory [facility] Boyd 8 9 [facility] ing:PT Repository 04/23/2018 [id number] Ambulatory [facility] 0 [facility] ing:MASS Repository 03/20/2018/ [id number] Ambulatory [facility] Boyd 8 9 [facility] ing:PT Repository PAYERS PAYERS ENCOUNTER GUARANTOR PAYER SUBSCRIBER SOURCE 10/12/2018 MAUREEN MARTINEZ9 Primary MAUREEN TALBERT: Boyd [address] Insurance:COR[employer]P [id number] [address]Jkn: 330 [id number] Repository [phone] (HP) Date:1429-08-85[address] [place] [place] [id number]: 10/12/2018 Secondary NOT GIVENUNK Casey Insurance:SELF PAY [facility] Number: Effective Repository Date:2018-10-12 09/10/2018 MAUREEN MANCERA1319 Primary MAUREEN HARRISONB: Casey [address] Insurance:CORESOURCEP [id number], [place] [facility] Number: Hospital [address]Upy: [phone] [id number] Repository [phone] (HP) Date:7804-24-33DI [address] [place] [place] [id number]: 09/10/2018 Secondary NOT GIVENUNK Boyd Insurance:SELF PAY [facility] Number: Effective Repository Date:2018-09-10 09/05/2018 MAUREEN MARTINEZ9 Primary MAUREEN HARRISONB: Boyd [address] Insurance:[employer] [id number] [facility] Number: Hospital [id number]: [phone] [id number] Repository [phone] (HP) Date:4969-91-47CM [address] [place] [place] [id number]: 09/05/2018 Secondary NOT GIVENUNK Casey Insurance:SELF PAY [facility] Number: Effective Repository Date:2018-09-05 08/22/2018 MAUREEN MARTINEZ9 Primary MAUREEN TALBERT: Casey [address] Insurance:[employer] [id number] [facility] Number: Hospital [id number]: [phone] [id number] Repository [phone] (HP) Date:9312-99-68VJ [address] [id number]: 08/22/2018 Secondary NOT GIVENUNK Boyd Insurance:SELF PAY [facility] Number: Effective Repository Date:2018-08-20 07/30/2018 MAUREEN MARTINEZ9 Primary MAUREEN TALBERT: Boyd [address] Insurance:[employer] [id number] [place] Number: Hospital [id number]: [phone] [id number] Repository [phone] (HP) Date:0760-28-67[address] [place] [id number]: 07/30/2018 Secondary NOT GIVENUNK Casey Insurance:SELF PAY [facility] Number: Effective Repository Date:2018-07-30 07/09/2018 MAUREEN MANCERA1319 Primary MAUREEN TALBERT: Casey [address] Insurance:COR[employer]P [id number] [place] Number: Hospital [address]Tsg: [phone]) [id number] Repository [phone] (HP) Date:0028-05-11EL [address] [place] [id number]: 07/09/2018 Secondary NOT GIVENUNK Casey Insurance:SELF PAY [facility] Number: Effective Repository Date:2018-05-18 04/23/2018 MAUREEN MANCEAR1319 Primary NOT GIVENUNK Boyd [address] Insurance:SELF [place]Y [place] [facility] [address]Ria: ([phone]) Number: Effective Repository [phone] (HP) Date:2016-08-24 03/20/2018 MAUREEN MANCERA1319 Primary MAUREEN Gillis CHRISTYB: Boyd [address] Insurance:[facility] [id number] [place] Number: Hospital [id number]: [phone]) [id number] Repository [phone] (HP) Date:9679-16-87YN [address] [place] [place] [id number]: 03/20/2018 Secondary NOT GIVENUNK Boyd Insurance:SELF PAY [facility] Number: Effective Repository Date:2018-01-30
== END ==
PROVIDERS: Family Provider Family Medicine; PCP Family Medicine; Referring Provider Internal Medicine Gastroenterology; Visit Provider Internal Medicine Gastroenterology
DX: R63.4 Abnormal weight loss (principal); R19.7 Diarrhea, unspecified
CPT/HCPCS: 36415; 82784; 83516; 86140; 86255

== ENCOUNTER → 2018-10-12 16:24 | Outpatient (CLI) | payer OTHER, SELFPAY ==
--- NOTE | 2018-10-12 11:15 | COLBX_PTH ---
PATIENT: ANGELINA MANCERA LOC: [facility] U#:[id number] AGE/SX: 70/F ROOM: RE10/12/[address]: Dr. Twan Waters MD : [id number] BED: DIS: SPEC #: [id number] RECD: 10/12/18 16:01 STATUS: KENDY AGGIE #: [id number] LEONARD: 10/12/18 11:[address]: Twan Waters DEPT: SURGICAL PATHOLOGY RECD BY: Adriel Amin ENTERED: 10/15/18 10:13 SP TYPE: COLON BX OTHR DR: Dr. Rica Gee MD [facility] Tissues: A - COLON BIOPSY B - Ileum, NOS Procedures: Surgery Specimen Level IV HEADER OPERATION: Colonoscopy with biopsies PRE-OP DIAGNOSIS: Chronic diarrhea TISSUE SUBMITTED: A. Right and left colon biopsies, rule out microscopic colitis, B. Terminal ileum biopsies, rule out Crohn's MICROSCOPIC DIAGNOSIS A. Right and left colon biopsies: Colonic mucosa with mild lymphoid hyperplasia. No active inflammation or microscopic colitis found. B. Terminal ileum, biopsy: Enteric mucosa consistent with terminal ileum, focally denuded. No active inflammation or granuloma found. CE:jc 10/16/18 MICROSCOPIC DESCRIPTION Slides are reviewed. GROSS DESCRIPTION A - Received in fixative is one container labeled with the patient's name and designated right and left colon biopsy. The specimen consists of multiple irregular fragments of light baum soft tissue that in aggregate measure 1 x 0.3 x 0.1 cm. The specimen is totally submitted in one cassette. B - Received in fixative is one container labeled with the patient's name and designated terminal ileum biopsy. The specimen consists of multiple irregular fragments of light baum soft tissue that in aggregate measure 0.5 x 0.2 x 0.1 cm. The specimen is totally submitted in one cassette. / AM:jc 10/15/18 TC:4 CPT: 34214 x2
--- OUTSIDE RECORDS SUMMARY | 2018-12-17 07:45 | XMS RPT_ITS ---
:1955 Author Organization OHIP Support Name Relationship Address Phone MAUREEN MANCERA Unavailable [address] + [place] [address] [facility] Unavailable [address] + [place] [address] MAUREEN MANCERA Unavailable [address] + [place] [address] [facility] Unavailable [address] + [place] [address] MAUREEN MANCERA Unavailable [address] + [place] [address] [facility] Unavailable [address] + [place] [address] MAUREEN MANCERA Unavailable [address] + [place] [address] [facility] Unavailable [address] + [place] [address] MAUREEN MANCERA Unavailable [address] + [place] [address] [facility] Unavailable [address] + [place] [address] MAUREEN MANCERA Unavailable [address] + [place] [address] [facility] Unavailable [address] + [place] [address] MAUREEN MANCERA Unavailable [address] + [place] [address] [facility] Unavailable [address] + [place] [address] MAUREEN MANCERA Unavailable [address] + [place] [address] [facility] Unavailable [address] + [place] [address] Care Team Providers Name Role Phone Rica Gee Attending Unavailable Rica Gee Referring Unavailable Jolliff, Rica Primary Care Unavailable Jabour, Carrieent Attending Unavailable Adarshbour, Vincent Referring Unavailable Jolliff, Rica Primary Care [...] [facility] for screening for Community malignant neoplasm [facility] cervix / Repository Z12.4(ICD-10) 07/09/2018 Unknown M50.322 - Other Rickey Munson Active [facility] cervical disc Community degeneration at Hospital C5-C6 level / Repository M50.322(ICD-10) 03/21/2018 Unknown M54.2 - Rica Gee Active [facility] Cervicalgia / Community M54.2(ICD-10) Hospital Repository PROCEDURES PROCEDURES No Procedure Records FoundRESULTS RESULTS COLON BIOPSY (CHOOSE Observed: 10/12/2018 Status: F Source: [place] SITE) 11:15 AM [facility] REPOSITORY Patient: ANGELINA MANCERA : 1955 (63/F) Acct Num: [id number] Phys: Twan Waters Unit Num: [id number] Loc: LABSPEC Specimen: [id number] Received: 10/12/18 - [...] one cassette. / AM:jc 10/15/18 TC:4 CPT: 24490 x2 HEADER OPERATION: Colonoscopy with biopsies PRE-OP [...] on file> Performed By: #### PCOLBX #### [facility] [address] [place], [place], [address] CRP Collected: 09/10/2018 Status: F Source: [place] 4:15 PM [facility] REPOSITORY TYPE CODE TESTS RESULT OUT OF RANGE REFERENCE UNITS LAB L501.6710 0.0-3.0 mg/L Normal < 2.90 C-REACTIVE PROT Result Comment: C-Reactive Protein (CRP) provides useful information for the diagnosis, therapy and monitoring of inflammatory processes and associated diseases. For the evaluation of Relative Risk for Cardiovascular Disease, a High Sensitivity CRP (HSCRP) should be ordered. Performed By: #### L501.6710 #### [facility] [place], [place], [address] CELIAC DISEASE Collected: 09/10/2018 Status: F Source: [facility] 4:15 PM [facility] REPOSITORY TYPE CODE TESTS RESULT OUT OF RANGE REFERENCE UNITS LAB L3200.1400 87-352 mg/dL Normal IMMUNO A 208 Result Comment: Performed at: [address] [id number] Peripheral Equipment Operator: Twan Mancilla PhD, Phone: [phone] LAB L3272.5556 0-3 U/mL Normal tTG IGA <2 Result [...] 09/05/2018 Status: F Source: [place] 10:00 AM [facility] REPOSITORY Order Comment: CYTOLOGY INFORMATION: - CLINICAL INFORMATION: - DATE LMP/MENOPAUSE: MENOPAUSE - COLLECTION VIAL: Thin Prep Vial - GEOPHYSICIST SOURCE: CERVICAL/ENDOCERVICAL - COLLECTION TECHNIQUE: BRUSH/SPATULA Specimen Comment: [id number] Specimen Comment: Source.............Cervix;Endocervix Specimen Comment: Other..............Post Menopausal [...] Normal PERFORM Comment Result Comment: Mayra Overton, Sales Superintendent (ASCP) LAB L7400.2575 . Normal TEST METHOD [...] was performed. Performed at: [facility] - [facility] [address] [place] [id number] Peripheral Equipment Operator: Maryellen Rosas MD, Phone: [phone] Performed By: #### L7400.0350 #### [facility] (refer to report for specific site) refer to report for address and phone number CREATININE FINGERSTICK Collected: 08/22/2018 Status: F Source: [place] 7:29 AM [facility] REPOSITORY TYPE CODE TESTS RESULT OUT OF RANGE REFERENCE UNITS LAB L9100.0210 0.55-1.02 mg/dL Normal CREATININE WB 0.8 LAB L9100.0220 >60 mL/min EGFR WB Normal > 60.0000 Performed By: #### L9100.0200 #### [facility] Point of Care [address] [place] [address] ABDOMEN/PELVIS WITH Observed: 08/22/2018 Status: F Source: [place] CONTRAST 7:23 AM [facility] REPOSITORY [facility] Imaging Services [address] [place] [address] Abdomen/Pelvis WITH Contrast MR#: [id number] Acct: [id number] Name: ANGELINA MANCERA Rep #: [id number] : 1955 F 63 From: Yaima Fitzpatrick MD PCP: Rica Gee MD Status: REG CLI Study: Abdomen/Pelvis WITH Contrast Date of Exam: 08/22/18 Exam# [id number] Ordering Dr: Rica Gee MD STUDY: CT [...] Service support , CC: Rica Gee MD Senior Commissary Agent: Signed Observed: 07/30/2018 Status: F Source: [place] CDIFF (MOLECULAR) 10:15 AM [facility] REPOSITORY Cdiff-Molecular Normal Reference Range = Negative C. Diff DNA Negative- No toxigenic C. Diff DNA Detected NAAT METHOD Testing was performed using nucleic acid amplification Performed By: #### M100.6796, M100.637 #### [facility] [address] [place], [address] Observed: 07/30/2018 Status: F Source: [place] ENTERIC PATHOGEN 10:15 [facility] PANEL STOOL REPOSITORY EP PANEL STOOL Normal [...] Detected Performed By: #### M100.6796, M100.637 #### [place] [id number] [facility] [place], [address] Observed: 07/30/2018 Status: F Source: [place] OVA AND PARASITES 10:15 [facility] REPOSITORY O + P OVA AND PARASITES EXAM, ROUTINE These results were obtained using wet preparation(s) and trichrome stained smear. This test does not include testing for Crytosporidium parvum, Cyclospora, or Microsporidia. [facility] ORIGINAL REPORT ON FILE IN LAB CONTAINS ADDITIONAL TEST SITE INFORMATION. Ova/Parasite Exam NO OVA, CYSTS, OR PARASITES FOUND. Performed By: #### M600.5000 #### [facility] [address] [facility] [place], [address] PT D/C SUMMARY (1) Observed: 07/09/2018 Status: F Source: [place] 2:59 PM [facility] REPOSITORY [facility] [address] [place] [address] Fax REHABILITATION SERVICES DISCHARGE SUMMARY MR#: [id number] Acct: [id number] Name: ANGELINA MANCERA Rep #: [id number] : 1955 62 From: Abbey Obregon PT, [...] please feel free to call me at [phone]. Thank you for the referral of this patient. Sincerely, Abbey Obregon <Electronically signed by Abbey Obregon PTCert. LUNAT> 07/09/18 1459 CC: Rica Gee MD; Rickey Munson DO PLACIDO Signed RE-EVALUATION - PT (1) Observed: 07/03/2018 Status: F Source: [place] 8:43 AM [facility] REPOSITORY [facility] [address] [place], [place] [address] Fax REEVALUATION / MEDICARE RECERTIFICATION PHYSICAL THERAPY MR#: [id number] Acct: [id number] Name: ANGELINA MANCERA Rep #: [id number] : 1955 62 From: Cert. CHERYL Snell PTT Referring Dr.: Rickey Munson DO Status: REG RCR Insurance: [employer] SELF PAY INSURANCE Rickey Munson, It has [...] do not hesitate to contact me at [phone] by phone or if you have questions [...] F Source: [place] Barr PT 12:38 PM [facility] REPOSITORY [facility] [address] [place] [address] Fax REHABILITATION SERVICES INITIAL EVALUATION MR#: [id number] Acct: [id number] Name: ANGELINA MANCERA Rep #: [id number] : 1955 62 From: Abbey Obregon PT, Cert. MDT Referring Dr.: Rickey Munson DO Status: REG RCR [facility]URANCE Patient's Visit Information ANGELINA [...] STRENGTHENING. HEP INSTRUCTION. 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 Disability: NO. Present symptoms: IVAN NECK [...] Unexplained weight loss: NO. Imaging: X-RAY AT [place] [facility] OF NECK - ARTHRITIS AT C56. [...] to be FAXED BACK to us at [phone] for Medicare purposes. Please let me know [...] 03/20/2018 Status: F Source: [place] 11:41 AM [facility] REPOSITORY [facility] [address] [place] [address] Fax REHABILITATION SERVICES DISCHARGE SUMMARY MR#: [id number] Acct: [id number] Name: ANGELINA MANCERA Rep #: [id number] : 1955 62 From: Abbey Obregon PT, [...] please feel free to call me at [phone]. Thank you for the referral of this patient. Sincerely, Abbey Obregon <Electronically signed by Cert. AMBAR Snell PT> 03/20/18 1141 CC: Rica Gee MD PLACIDO Signed RE-EVALUATION - PT (1) Observed: 03/12/2018 Status: F Source: [place] 12:31 PM [facility] REPOSITORY [facility] [address] [facility] [place] [address] Fax REEVALUATION / MEDICARE RECERTIFICATION PHYSICAL THERAPY MR#: [id number] Acct: [id number] Name: ANGELINA MANCERA Rep #: [id number] : 1955 62 From: Cert. AMBAR Snell [...] do not hesitate to contact me at [phone] by phone or if you have questions or concerns regarding this new plan of care! Sincerely, Abbey Obregon <Electronically signed by Abbey Obregon PT, CertJosie LUNAT> 03/12/18 1231 CC: iRca Gee MD PLACIDO Signed For Medicare only, by signing this I certify the plan of care. Physicians Signature Date INITAL EVALUATION (1) Observed: 02/01/2018 Status: F Source: [place] - PT 1:16 PM [facility] REPOSITORY [facility] [address] [place] [address]. [address] [place] [address] Fax REHABILITATION SERVICES INITIAL EVALUATION MR#: [id number] Acct: [id number] Name: ANGELINA MANCERA Rep #: [id number] : 1955 62 From: Abbey Obregon PT, [...] INSTRUCTION. - Subjective Subjective: Diagnosis: CERVICALGIA. 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 Please let me know [...] ADMITTING ENCOUNTER LOCATION SOURCE NUMBER CLASS 10/12/2018 [id number] Ambulatory [facility] 7 [facility] ing:LABSPEC Repository 09/10/2018 [id number] Ambulatory [place] 2 [facility] ing:MTLAB Repository 09/05/2018 [id number] Ambulatory [place] 7 [facility] ing:LABSPEC Repository 08/22/2018 [id number] Ambulatory [facility] 7 [facility] ing:CT Repository 07/30/2018 [id number] Ambulatory [facility] [place] 0 [facility] ing:LABSPEC Repository 07/09/2018/ [id number] Ambulatory [place] 8 9 [facility] ing:PT Repository 04/23/2018 [id number] Ambulatory [place] 0 [facility] ing:MASS Repository 03/20/2018/ [id number] Ambulatory [place] 8 9 [facility] ing:PT Repository PAYERS PAYERS ENCOUNTER GUARANTOR PAYER SUBSCRIBER SOURCE 10/12/2018 MAUREEN MARTINEZ9 Primary MAUREEN TALBERT: [place] Insurance:[employer] [id number] [address]Dto: 330 [id number] Repository [phone] (HP) Date:7602-69-29[address] [place] [place] [id number]: 10/12/2018 Secondary NOT GIVENUNK [place] Insurance:SELF PAY Counts Include [facility]: Effective Repository Date:2018-10-12 09/10/2018 MAUREEN MANCERA1319 Primary MAUREEN HARRISONB: [place] Insurance:[employer] [id number] [facility] Hospital [address]Uyb: (297) [id number] Repository [phone] (HP) Date:3139-27-13VB [address] [place] [id number]: 09/10/2018 Secondary NOT GIVENUNK [place] Insurance:SELF PAY Counts Include [facility] Number: Effective Repository Date:2018-09-10 09/05/2018 MAUREEN MARTINEZ9 Primary MAUREEN HARRISONB: [place] Insurance:[employer] [id number] [facility] Number: Hospital [id number]: (205) [id number] Repository [phone] (HP) Date:6458-33-64CO [address] [place] [id number]: 09/05/2018 Secondary NOT GIVENUNK [place] Insurance:SELF PAY Counts Include [facility] Number: Effective Repository Date:2018-09-05 08/22/2018 MAUREEN MARTINEZ9 Primary MAUREEN TALBERT: [place] Insurance:[employer] [id number] [facility] Number: Hospital [id number]: ([phone]) [id number] Repository [phone] (HP) Date:8326-75-71NR [address] [place] [place] [id number]: 08/22/2018 Secondary NOT GIVENUNK [place] Insurance:SELF PAY Counts Include [facility] Number: Effective Repository Date:2018-08-20 07/30/2018 MAUREEN MARTINEZ9 Primary MAUREEN TALBERT: [place] Insurance:[employer] [id number] [place] Number: Hospital [id number]: (330 [id number] Repository [phone] (HP) Date:1918-05-33UV [address] [id number]: 07/30/2018 Secondary NOT GIVENUNK [place] Insurance:SELF PAY [facility] Number: Effective Repository Date:2018-07-30 07/09/2018 MAUREEN MANCERA1319 Primary MAUREEN TALBERT: [place] Insurance:[employer] [id number] [place] Number: Hospital [id number]: ([phone]) [id number] Repository [phone] (HP) Date:6999-62-48NO [address] [id number]: 07/09/2018 Secondary NOT GIVENUNK [place] Insurance:SELF PAY Counts Include [facility] Number: Effective Repository Date:2018-05-18 04/23/2018 MAUREEN MANCERA1319 Primary NOT GIVENUNK [place] Insurance:SELF [place] [facility] [address]Bcc: (330) Number: Effective Repository [phone] (HP) Date:2016-08-24 03/20/2018 MAUREEN MANCERA1319 Primary MAUREEN Gillis CHRISTYB: [place] [facility] [id number] [place] Number: Hospital [id number]: (330) [id number] Repository [phone] (HP) Date:5510-79-03ZW [address] [id number]: 03/20/2018 Secondary NOT GIVENUNK [place] Insurance:SELF PAY [facility] Number: Effective Repository Date:2018-01-30
== END ==
PROVIDERS: Family Provider Family Medicine; PCP Family Medicine; Referring Provider Internal Medicine Gastroenterology; Visit Provider Internal Medicine Gastroenterology
DX: R19.7 Diarrhea, unspecified (principal)
CPT/HCPCS: 88305

== ENCOUNTER → 2018-11-14 08:52 | Outpatient (CLI) | payer OTHER, SELFPAY ==
--- NOTE | 2018-11-14 09:10 | BD_ITS ---
STUDY: DUAL ENERGY X-RAY ABSORPTIOMETRY / DXA REASON FOR EXAM: Female, 63 years old. The patient is postmenopausal. Loss of height. TECHNIQUE: Bone Mineral Density (BMD) measurements of lumbar spine and bilateral hips were obtained. COMPARISON: None. FINDINGS: Lumbar Spine (L1-L4): g/cm2 (1.074) / T-score (-0.9) / Z-score (0.5) Findings are suggestive of normal bone density with a low fracture risk. Left Femur Total: g/cm2 (0.891) / T-score (-0.9) / Z-score (0.1) Left Femoral Neck: g/cm2 (0.912) / T-score (-0.9) / Z-score (0.4) Right Femur Total: g/cm2 (0.866) / T-score (-1.1) / Z-score (-0.1) Right Femoral Neck: g/cm2 (0.865) / T-score (-1.2) / Z-score (0.1) BD/Dexa Bone Density Study IMPRESSION: The patient is considered osteopenic as outlined below according to World Obed Organization (WHO) criteria with a low fracture risk. Reference Information: The T-score is the number of standard deviations above or below the standard which is normal for young adults at their peak bone mineral density. The World Health Organization (WHO) interprets the T-scores as follows: Above -1 Normal bone density Between -1 and -2.5 Osteopenia Equal to / or below -2.5 Osteoporosis As a practical clinical guideline, osteopenia may be graded as follows: Mild -1 through -1.5 Moderate -1.6 through -2.0 Severe -2.1 through -2.4 The Z-score is the number of standard deviations above or below age-matched controls. A Z-score of less than -1.5 would be considered abnormal. References: 1. NIH Osteoporosis and Related Bone Diseases http://www.osteo.org 2. International Society for Clinical Densitometry http://www.iscd.org 3. National Osteoporosis Foundation http://www.nof.org Electronically Signed: Donald Thomas MD at 14:35 EST , Service support ,
== END ==
PROVIDERS: Family Provider Family Medicine; PCP Family Medicine; Referring Provider Family Medicine; Visit Provider Family Medicine
DX: N95.9 Unspecified menopausal and perimenopausal disorder (principal)
CPT/HCPCS: 77080

== ENCOUNTER 2020-08-31 08:00 | Outpatient (RCR) | payer OTHER, SELFPAY ==
--- NOTE | 2020-06-08 07:53 | HP.PTEVAL_ITS ---
Patient's Visit Information ANGELINA MANCERA is a 64 year old F referred to Physical Therapy by Dr. Jace Quesada MD with a diagnosis of Left Hip Pain. Date of Evaluation: 06/08/20 Physical Therapist: Tianna Stover DPT - Visit Plan Frequency: 3x /Week Duration: 4 Weeks Plan: Patient to have single visit for HEP then will be out of town for 4 weeks- will resume when she returns for 3x a week for 4 weeks. Focus on core strength/stabilization and centralization of symptoms - Subjective Left hip pain since October- and its gotten worse since then. She was diagnosed with ischial tuberosity tendonitits. She had an injection-in the paraspinals which did not help. The pain is located in the left leg in the calf on the lateral side. Pins/[place] that starts when she gets out of bed- 10-15 min then reverts to a dull and achy. She is starting to have pain in the thigh as well. Pain comes and goes. Best: 0/10 Eases: stretches- piriformis stretch, figure 4, hamstring stretching. laying on her back on a hard surface. Worst: 8/10 Agg: standing, sitting a lot. Is working on finishing a book- she bought a pillow last week for her sits bones- she can now sit longer. Exercise- walks daily 3 miles- even surfaces and does strength training (squats, hamstring curls, etc)- does not induce pain. No history of back pain. Sleep: not disturbed. Has had no x-rays or MRI. PMHx: none Meds: none. - Objective Posture: FH, RS- can correct but does not maintain. Gait: no deviation noted- good arm swing and trunk rotation. SLS: Left: 8 seconds with increased sway and hip drop Right: 18 seconds. HR/TR: able with good musculature in the calf noted bilaterally. Sensation/Reflex: WNL. ROM: Lumbar: WFL, Hip/Ankle/Knee: WNL no pain in any directional testing. Strength: Core: fair minus, Left: Hip: flexion: 4/5, Abd: 4/5, Clam Shell: 4-/5, IR/ER: 4-/5, Extn: 4/5, Right: 4+/5 throughout. Knee: 5/5, Ankle: 5/5. Flex: HS: mild Gastroc: mild. Special Test: dural signs: positive on the left. Slump: positive on the left SLR: negative. LLD: negative. Palpation: tender along left gluts, ischial tuberosity and paraspinals - Goals Goal 1:: Patient will be I with HEP and progression Goal Time Frame: 4-6 Weeks Goal 2:: Patient will maintain proper posture t/o tx session to demo increase core s/s. Goal Time Frame: 4-6 Weeks Goal 3:: Patient will report 0/10 pain for 1 week Goal Time Frame: 4-6 Weeks - Rehabilitation Potential Physical Therapy Diagnosis: Patient presents with hyomobility- she has decreased strength, flex and muscular endurance with dural signs on the left leading to poor posture and increased pain with ADL's. Rehabilitation Potential: Good - Anticipated Interventions Patient/Client Instruction: Educate patient on: Benefits of Fitness Program Therapeutic Exercise to Include: Strength training, Endurance training, Balance training, Body mechanics, Postural training, Flexibilty training, Gait and locomotor training, Neuromotor development, Dynamic Lumbar Stabilization, Scapular Strength/Stabilization For the Purpose of:: To improve muscle performance and motor function TENS: Yes Cryotherapy (ice pack, ice massage): Yes Thermo therapy (hot pack): Yes Thank you for the opportunity to evaluate your patient. For Medicare and Medicare HMO plans, please review the plan of care and approve it. It will need to be FAXED BACK to us at [phone] for Medicare purposes. For Medicare only, by signing this I certify the plan of care. Please let me know if there are questions or concerns regarding this plan of care. Physician Signature: Date:
--- NOTE | 2020-08-31 08:58 | HP.PTDCSUM ---
It has been my pleasure to treat ANGELINA MANCERA referred by Dr. Jace Quesada MD, with the diagnosis of Left Hip Pain for a total of 12 visit(s). Discharge Date: Please see the following information for a summary of their discharge status. Subjective: Patient reports that she is okay, the pain is not as intense as it use to be. She can still full relief from prone- it stays away then about 5 minutes later it comes back. She cleaned the house on Monday and she was pretty sore after that. She feels that she has tools and exercises that she feels that she can continue indep. Left LE Pain Intensity (Out of 10): 2 % Improvement: 65 Objective/Function: Posture: good throughout sitting and standing. Gait: no deviation noted- good arm swing and trunk rotation. SLS: Left: 30 seconds with mild increased in muscle activation and sway Right: 30 seconds HR/TR: able with good musculature in the calf noted bilaterally. Sensation/Reflex: WNL. ROM: Lumbar: WFL, Hip/Ankle/Knee: WNL no pain in any directional testing. Mild increase in s/s down the left leg with right rotation but abolishes when she return to neutral. Strength: Core: fair minus, Left: Hip: flexion: 4+/5, Abd: 4+/5, Clam Shell: 4+/5, IR/ER: 4+/5, Extn: 4+/5, Right: 4+/5 throughout. Knee: 5/5, Ankle: 5/5. Flex: HS: mild Gastroc: mild. Special Test: dural signs: positive on the left. Slump: positive on the left SLR: negative. LLD: negative. Palpation: tender along left gluts, ischial tuberosity and paraspinals Goal 1:: Patient will be I with HEP and progression Goal Progress: Progressing Goal 2:: Patient will maintain proper posture t/o tx session to demo increase core s/s. Goal Progress: Progressing Goal 3:: Patient will report 0/10 pain for 1 week Goal Progress: Progressing Plan: Patient advised to continue exercises with extension bias. Encouraged if her pain continues or worsens to follow up with referring physician for further evaluation. If there are questions or concerns regarding this patient's physical therapy, please feel free to call me at [phone]. Thank you for the referral of this patient. Sincerely, GILL HaywoodT
== END 2020-08-31 10:22 | disposition home or self-care (01) ==
LOC: PT 08:00
PROVIDERS: PCP Family Medicine; Referring Provider Family Medicine; Visit Provider Family Medicine
DX: M70.72 Other bursitis of hip, left hip (principal)
CPT/HCPCS: 97035; 97110; 97162; 97164

== ENCOUNTER → 2021-02-19 12:12 | Outpatient (CLI) | payer OTHER, SELFPAY ==
--- NOTE | 2021-02-19 12:23 | US_ITS ---
STUDY: THYROID ULTRASOUND REASON FOR EXAM: Female, 65 years old. right thyroid nodule TECHNIQUE: Ultrasound evaluation of the thyroid was performed with real-time and static perez-scale imaging. COMPARISON: None. FINDINGS: RIGHT LOBE: The right lobe of the thyroid gland measures 4.6 x 1.6 x 1.5 cm. There is a homogeneous echotexture. Nodule 1:18 x 11 x 15 mm mixed cystic and solid isoechoic wider than tall smoothly marginated nodule with no echogenic foci (TR 2) in the anterior right lobe. LEFT LOBE: The left lobe of the thyroid gland measures 3.0 x 1.2 x 0.9 cm. There is a homogeneous echotexture. There are no demonstrated solid, cystic or complex lesions. ISTHMUS: The isthmus measures 3 mm thick. . The regional lymph nodes are normal. US/Thyroid IMPRESSION: 18 mm cystic and solid nodule in the anterior right lobe. Electronically Signed: Adriel Barragan MD at 8:10 EDT Tel , Service support ,
== END ==
PROVIDERS: PCP Family Medicine; Referring Provider Family Medicine; Visit Provider Family Medicine
DX: E04.1 Nontoxic single thyroid nodule (principal)
CPT/HCPCS: 76536

== ENCOUNTER → 2021-05-26 08:46 | Outpatient (CLI) | payer OTHER, SELFPAY ==
--- NOTE | 2021-05-26 08:50 | NM_ITS ---
CLINICAL: 65-year-old female with reported history of thyroid nodularity. I-123 THYROID UPTAKE and SCAN COMPARISON: Thyroid ultrasound report 02/19/2021 FINDINGS: The patient was administered a 308 uCi I-123 capsule by mouth. The 4-hour I-123 radioactive iodine thyroidal uptake was calculated to be 21.9 % (normal 5 to 25 %). The 24-hour I-123 radioactive iodine thyroidal uptake was calculated to be 53.9 % (normal 5 to 40 %). The I-123 thyroid scan demonstrates homogeneous radiopharmaceutical concentration throughout both lobes of a U-shaped thyroid gland. There are no colloidal parenchymal hypofunctioning-cold nodules noted in either lobe of the thyroid gland. NM/Thyroid Uptake Single or Mult IMPRESSION: 1. UPPER LIMITS OF NORMAL 4- and ABNORMAL ELEVATED 24-hour I-123 radioactive iodine thyroidal uptakes. 2. The I-123 thyroid scan in conjunction with the calculated IODINE uptake values may represent the presence of a low-grade diffuse toxic goiter. Correlation with in vitro thyroid function studies is recommended if not previously obtained. 3. There are no visualized hypofunctioning-cold nodules demonstrated in right-left lobe thyroid parenchyma. Electronically Signed: Adriel Gutierrez DO at 22:59 EDT Tel , Service support ,
== END ==
PROVIDERS: PCP Family Medicine; Referring Provider Family Medicine; Visit Provider Family Medicine
DX: E04.1 Nontoxic single thyroid nodule (principal)
CPT/HCPCS: 78012; A9516

== ENCOUNTER → 2021-05-28 16:36 | Outpatient (CLI) | payer OTHER, SELFPAY ==
[2021-05-28 18:06] LABS: Free T3 2.8 pg/mL (2.18-3.98); T4 Total, Thyroxin 8.5 ug/dL (4.8-13.9)
== END ==
PROVIDERS: PCP Family Medicine; Referring Provider Family Medicine; Visit Provider Family Medicine
DX: E04.1 Nontoxic single thyroid nodule (principal)
CPT/HCPCS: 36415; 84436; 84443; 84481

== ENCOUNTER 2024-06-06 16:52 | Emergency (ER) | payer MEDICARE, SELFPAY ==
[2024-06-06 16:53] VITALS: BP 153/92; PULSE 91; RESP 16; TEMP 35.9; O2SAT 99; BMI 22.8
--- NOTE | 2024-06-06 17:21 | EKG12_ITS ---
Test Reason : Blood Pressure : / mmHG Vent. Rate : 082 BPM Atrial Rate : 082 BPM P-R Int : 128 ms QRS Dur : 094 ms QT Int : 374 ms P-R-T Axes : 021 -14 041 degrees QTc Int : 436 ms Normal sinus rhythm Incomplete right bundle branch block Borderline ECG Confirmed by Rickey Weeks ([id number]), order editor LOYDA BLANDON ([id number]) on 06/11/2024 1:52:41 PM Referred By: Confirmed By:Rickey Weeks
[2024-06-06] MEDS: Mag /Aluminum/Simeth WCH UDC 30 ML ORAL.SUSP PO (17:24)
[2024-06-06] MEDS: Lidocaine 2% Viscous15 ML UDC 15 ML PO (17:24)
[2024-06-06 17:45] VITALS: BP 130/80; PULSE 78; RESP 19
[2024-06-06 17:49] LABS: Hematocrit 36.9 % (37-47); Hemoglobin 12.4 g/dL (12.0-15.0); Mean Corp Hgb Conc 33.6 g/dL (32-36); Mean Corpuscular Hgb 29.2 pg (27.0-32.0); Mean Platelet Vol. 9.7 fl (6.2-12.0); Platelet Count 317 K/mm3 (150-450); RBC Distribution Width CV 11.9 % (11.6-14.6); RBC Distribution Width SD 38.2 fl (35.1-43.9); Red Blood Count 4.24 M/mm3 (4.2-5.4); White Blood Count 9.6 K/mm3 (4.4-11.0)
[2024-06-06 18:00] VITALS: BP 143/87; PULSE 71; RESP 20
[2024-06-06 18:03] LABS: Anion Gap 10 (5-15); BUN 14 mg/dL (7-18); BUN/Creat Ratio 15.4 RATIO (10-20); Calcium,Total 10.1 mg/dL (8.5-10.1); Chloride 107 mmol/L (98-107); Creatinine, Serum 0.91 mg/dL (0.55-1.02); EST Glomerular Filtration Rate 65 mL/min (>60); Est Glom Filt Rate - Afr Amer 79 mL/min (>60); Glucose 156 mg/dL (74-106); Potassium 3.2 mmol/L (3.5-5.1); Sodium Level 142 mmol/L (136-145); Troponin-I HS (w/2H Reflex) 4 pg/mL (3.0-54.0)
[2024-06-06 19:00] VITALS: BP 137/85; PULSE 86; RESP 14; O2SAT 98
[2024-06-06] MEDS: Potassium Chloride Oral Soln 20 MEQ/15 ML UDC 40 MEQ PO (19:15)
--- NOTE | 2024-06-06 19:20 | EX.ED.DYSGE1 ---
HPI History of Present Illness Chief Complaint: Palpitations Detail of Chief Complaint: Palpitations and lightheadedness Informant: patient Onset/Context/Timing Onset: Hours Context: Sudden Onset Timing: Intermittent Quality: Feeling my heartbeat and rapid heartbeat for me Location: Cardiovascular Current Severity: Gone Maximum Severity: Moderate Worsened by: Nothing occurred at rest Relieved by: Not applicable Associated Symptoms Associated Symptoms: Complaint of lightheadedness Narrative Narrative: Patient is six 8-year-old woman. She has no significant past medical history other than GERD. She presents because of palpitations, rapid heart rate, approximately 100 per her Apple Watch, and lightheadedness. She denied headache, double vision blurred vision loss of vision. Denies rangers decreased hearing. No trouble speech or swallowing. She denied chest pain, pressure or heaviness. She denies shortness of breath. She has no history of orthopnea or PND. She denies abdominal pain. She denies black or maroon-colored stool. She has no history of VTE. Denies leg pain, swelling discoloration. She has no risk factors for VTE. Prior similar symptoms: No Recent Illness/Hospitalization: No PFSH PFSH Medical History Nodular goiter GERD (gastroesophageal reflux disease) Kidney stones IBS (irritable bowel syndrome) High cholesterol Home Medications ?Medication ?Instructions ?Recorded ?Last Taken ?Type aluminum-mag hydroxide-simethicone 10 ml PO Q6H PRN 06/22/21 Unknown History 200 mg-200 mg-20 mg/5 mL oral susp cimetidine 200 mg tablet (Tagamet 200 mg PO QACHS 06/22/21 Unknown History HB) ibuprofen 600 mg tablet ea PO 06/22/21 Unknown History methylcellulose (laxative) 500 mg 500 mg PO DAILY 06/22/21 Unknown History tablet (Citrucel) Allergy/AdvReac Type Severity Reaction Status Date / Time No Known Allergies Allergy Verified 06/06/24 16:55 Family History Other Heart disease Myocardial infarction Thyroid disorder Social History Smoking Status: Never smoker alcohol intake: current alcohol intake frequency: a few times a week Alcohol type: wine substance use type: does not use what type of physical activity do you participate in: walking and weight training frequency: 3-4 times per week ROS ROS ED Constitutional Constitutional ED: Denies chills, fever(s) or subjective Eyes Eyes: Denies blurry vision, change in vision or diplopia Cardiovascular Cardiovascular: Reports palpitations and racing heartbeat; Denies chest pain, orthopnea or paroxysmal nocturnal dyspnea Respiratory/Chest Respiratory/Chest: Denies cough, dyspnea, dyspnea on exertion, orthopnea or paroxysmal nocturnal dyspnea Gastrointestinal Gastrointestinal: Denies abdominal pain, melena, nausea or vomiting Musculoskeletal Musculoskeletal: Denies back pain Neurologic Neurologic: Denies paresthesias Endocrine Endocrinology: Denies cold intolerance or heat intolerance Hematologic/Lymphatic Hematologic/Lymphatic: Reports systems reviewed and no addt'l complaints, except as documented EXAM Physical Exam Const Vital Signs: 06/06/24 16:53 06/06/24 17:45 06/06/24 18:00 Temperature 96.6 F L Temperature Source Temporal Pulse Rate 91 78 71 Respiratory Rate 16 19 H 20 H Blood Pressure 153/92 H 130/80 H 143/87 H Blood Pressure Mean 112 94 104 Pulse Ox 99 Oxygen Delivery Method 06/06/24 19:00 06/06/24 20:00 Temperature Temperature Source Pulse Rate 86 76 Respiratory Rate 14 16 Blood Pressure 137/85 H 147/85 H Blood Pressure Mean 102 105 Pulse Ox 98 97 Oxygen Delivery Method Room Air Room Air Positive well nourished and well developed General Appearance ED: well developed and NAD; Negative for pallor HEENT Reports moist mucous membranes HEENT Narrative: Head is atraumatic normocephalic. Ears normal. Nares patent. Posterior pharynx is normal. Eyes PERRL and EOMs intact bilaterally General Eye ED: Negative for pale conjunctiva or scleral icterus Neck no lymphadenopathy, supple and no JVD Resp normal respiratory effort and clear to auscultation bilaterally Cardio regular rate, regular rhythm, S1 normal heart sound, S2 normal heart sound and no murmurs GI normal to inspection, nondistended, normoactive bowel sounds, non-tender and non-distended; Negative for hepatosplenomegaly or no masses Extremity normal to inspection Extremity Narrative: There is no asymmetry, swelling, discoloration, leg vein distention, palpable cords or tenderness along the distribution of the deep venous system. Neuro oriented x3 and CN's II-XII intact bilaterally Sensorium / Orientation: alert Psych mental status grossly normal Skin no rashes or lesions noted, no wounds and skin turgor normal General Skin Exam: elasticity normal; Negative for jaundice or pallor MDM MDM MDM Narrative Medical decision making narrative: Uncertain cause of patient's rapid heartbeat. It was slightly over 100. Patient states that her normal resting heart rate is around 60. Presently it is 85. She has no history of hypertension. She has no symptoms for hyperthyroidism either. She presently appears in no distress. Will obtain CBC to rule out anemia. Troponin to rule out atypical cardiac ischemia. BMP to assess electrolytes and specifically potassium. Twelve-lead EKG was obtained. Lab Data Attestation: I reviewed the patient's lab results. Lab results narrative: Documented under the MDM/portion of the EMR Labs: Laboratory Results - last 24 hr 06/06/24 06/06/24 17:18 19:38 WBC 9.6 RBC 4.24 Hgb 12.4 Hct 36.9 L MCV 87.0 MCH 29.2 MCHC 33.6 RDW Std Deviation 38.2 RDW Coeff of Patrick 11.9 Plt Count 317 MPV 9.7 Sodium 142 Potassium 3.2 L Chloride 107 Carbon Dioxide 25.0 Anion Gap 10 BUN 14 Creatinine 0.91 Estim Creat Clear Calc 51.80 Est GFR (MDRD) Af Amer 79 Est GFR (MDRD) Non-Af 65 BUN/Creatinine Ratio 15.4 Glucose 156 H Calcium 10.1 Troponin I High Sens 4 < 3 L EKG Initial EKG: Attestation: I personally reviewed and interpreted this EKG as follows: Interpretation: Sinus Rhythm (Rate is 82. IL interval is 128 ms. Cures duration 94 ms. QT duration 3 and 74 ms. Lynn is normal. Patient has an RR prime on V1 and V2. This may represent an incomplete right bundle branch block. There is no ischemic changes noted.) Treatment and Re-Evaluation :: Patient was informed of results and reason for potassium. She also was informed that her blood sugar is elevated. She has not eaten recently. This will need further outpatient workup. Comments:: Patient was informed of her laboratory results. She was informed her blood pressure is elevated. She was instructed to follow-up with her doctor to have her potassium rechecked glucose rechecked and blood pressure rechecked. She was informed the reason for her heart rate is unknown at this time. Discharge Plan Triage Chief Complaint: Palpitations ED Provider: Chi Yi Dx/Rx/DC Orders Clinical Impression: Tachycardia, Nondiabetic hyperglycemia, Elevated blood-pressure reading without diagnosis of hypertension Instructions: ED About Arrhythmias, ED Hypertension, To Be Confirmed, ED Hyperglycemia New Poss Diabetes Prescriptions: No Action ibuprofen 600 mg tablet PO Patient Comments: TAKE 1 TABLET BY MOUTH 4 TIMES DAILY NEEDED cimetidine [Tagamet HB] 200 mg tablet 200 mg PO QACHS alum-mag hydroxide-simeth 200-200-20 mg/5 mL suspension 10 ml PO Q6H PRN Citrucel 500 mg tablet 500 mg PO DAILY Primary Care Provider: Rica Gee Referrals: Rica Gee MD [Primary Care Provider] - 3-5 Days Print Language: Chinese Disposition Disposition: Home, Self Care
[2024-06-06 19:33] LABS: Reflex Troponin-HS? (from REC) Y
[2024-06-06 20:00] VITALS: BP 147/85; PULSE 76; RESP 16; O2SAT 97
[2024-06-06 20:00] LABS: Troponin-I HS < 3 pg/mL (3.0-54.0)
[2024-06-06 20:19] VITALS: BP 138/94; PULSE 74; RESP 18; TEMP 36.4; O2SAT 99
== END 2024-06-06 20:29 | disposition home or self-care (01) ==
PROVIDERS: Emergency Provider Emergency Medicine; PCP Family Medicine; Visit Provider Emergency Medicine
DX: R00.0 Tachycardia, unspecified (principal); R00.2 Palpitations; E78.00 Pure hypercholesterolemia, unspecified; R42 Dizziness and giddiness; R03.0 Elevated blood-pressure reading, without diagnosis of hypertension; K21.9 Gastro-esophageal reflux disease without esophagitis; R73.9 Hyperglycemia, unspecified
CPT/HCPCS: 80048; 84484; 85027; 93005; 99284; A4216